=== PATIENT | female | born 1955 | race Caucasian/White ===

== ENCOUNTER 2020-01-25 21:38 | Inpatient (IN) | payer MEDICARE, MEDICAID ==
--- NOTE | 2020-01-25 22:23 | ED ---
Complex/Multi-Sys Presentation - HPI Summary HPI Summary: Patient is a 64 year-old female arriving via ambulance as transfer from [place] to [facility] with a chief complaint of abnormal lab results today with plan for CHF workup/cardiology consult. Patient reports that she had gone to [facility] about a week ago for edema, and she was discharge with instruction to increase her Lasix. She has been compliant with this although she still has some edema in the lower extremities. Today, she developed wheezing without shortness of breath. She endorses some diarrhea today, but she denies any fevers , chills, chest pain, nausea, vomiting, or dysuria. She is not in any pain at this time. Past medical history includes diabetes with retinopathy and neuropathy, seizures, tonsillectomy, 2x C-sections. Family history includes cardiac disease. Current smoker (5 cigarettes a day), no EtOH, no substance use. Medications reviewed. Allergies noted. Labs from [place]: sodium 118, chloride 87, troponin 0.03, BNP 1710, hemoglobin 8.4. - History Of Current Complaint Chief Complaint: EDGeneral Time Seen by Provider: 01/25/20 21:55 Hx Obtained From: Patient Onset/Duration: Lasting Days, Still Present Severity Currently: Mild Aggravating Factor(s): nothing Alleviating Factor(s): nothing Associated Signs And Symptoms: Positive: Wheezing, Edema, Diarrhea. Negative: SOB, Chest Pain, Nausea, Vomiting, Dysuria, Fever, Other - chills - Allergies/Home Medications Allergies/Adverse Reactions: Allergies Allergy/AdvReac Type Severity Reaction Status Date / Time Penicillins Allergy Unknown Verified 01/25/20 22:53 Reaction Details Home Medications: Home Medications Aspirin EC TAB* [Ecotrin EC Low Dose 81 MG*] 81 mg PO DAILY 01/25/20 [History Confirmed 01/25/20] Atorvastatin* [Lipitor*] 80 mg PO DAILY 01/25/20 [History Confirmed 01/25/20] Cholecalciferol TAB* [Vitamin D TAB*] 2,000 units PO DAILY 01/25/20 [History Confirmed 01/25/20] Cyclobenzaprine TAB* [Flexeril 10 MG TAB*] 10 mg PO TID PRN 01/25/20 [History Confirmed 01/25/20] FLUoxetine CAP* [PROzac CAP*] 10 mg PO DAILY 01/25/20 [History Confirmed ] Furosemide TAB* [Lasix TAB*] 60 mg PO DAILY 01/25/20 [History Confirmed 01/25/20 ] Gabapentin CAP(*) [Neurontin 400 mg CAP(*)] 400 mg PO BID 01/25/20 [History Confirmed 01/25/20] Insulin Aspart Prot/Insuln Asp [Novolog Mix 70-30 Flexpen 3 ML x 5 PENS] 20 units SUBCUT DAILY 01/25/20 [History Confirmed 01/25/20] LevoCETirizine TAB (NF) [Xyzal TAB (NF)] 5 mg PO DAILY 01/25/20 [History Confirmed 01/25/20] Losartan TAB* [Cozaar TAB*] 100 mg PO DAILY 01/25/20 [History Confirmed 01/25/20 ] Magnesium Oxide [Magnesium] 250 mg PO BID 01/25/20 [History Confirmed 01/25/20] Meloxicam(NF) [Mobic(NF)] 7.5 mg PO DAILY 01/25/20 [History Confirmed 01/25/20] [place]-3 Fatty Acids (Nf) [Fish Oil (NF)] 1,000 mg PO BID 01/25/20 [History Confirmed 01/25/20] Omeprazole CAP (NF) [Prilosec CAP* 20 MG] 20 mg PO DAILY 01/25/20 [History Confirmed 01/25/20] Phenytoin CAP(*) [Dilantin CAP(*)] 200 mg PO BID 01/25/20 [History Confirmed ] PMH/Surg Hx/FS Hx/Imm Hx Endocrine/Hematology History: Reports: Hx Diabetes Opthamlomology History: Reports: Other Sensory Impairments - diabetic retinopathy Neurological History: Reports: Hx Nerve Disease - diabetic neuropathy, Hx Seizures - Surgical History Surgical History: Yes Surgery Procedure, Year, and Place: tonsillectomy, 2 c-sections Infectious Disease History: No Infectious Disease History: Denies: Traveled Outside the [place] in Last 30 Days - Family History Known Family History: Positive: Cardiac Disease - Social History Alcohol Use: None Hx Substance Use: No Substance Use Type: Reports: None Hx Tobacco Use: Yes Smoking Status (MU): Light Every Day Tobacco Smoker - Additional Comments History Additional Comments: diabetes with retinopathy and neuropathy, seizures, current smoker Review of Systems - ROS Summary Review of Systems Summary: Home Medications Medication Instructions Recorded Confirmed Type Aspirin EC TAB* [Ecotrin EC Low 81 mg PO DAILY 01/25/20 01/25/20 History Dose 81 MG*] Atorvastatin* [Lipitor*] 10 mg PO DAILY 01/25/20 01/25/20 History Cholecalciferol TAB* [Vitamin D 2,000 units PO DAILY 01/25/20 01/25/20 History TAB*] Cyclobenzaprine TAB* [Flexeril 10 10 mg PO TID PRN 01/25/20 01/25/20 History MG TAB*] FLUoxetine CAP* [PROzac CAP*] 10 mg PO DAILY 01/25/20 01/25/20 History Furosemide TAB* [Lasix TAB*] 60 mg PO DAILY 01/25/20 01/25/20 History Gabapentin CAP(*) [Neurontin 400 400 mg PO BID 01/25/20 01/25/20 History mg CAP(*)] Insulin Aspart Prot/Insuln Asp 20 units SUBCUT DAILY 01/25/20 01/25/20 History [Novolog Mix 70-30 Flexpen 3 ML x 5 PENS] LevoCETirizine TAB (NF) [Xyzal TAB 5 mg PO DAILY 01/25/20 01/25/20 History (NF)] Losartan TAB* [Cozaar TAB*] 50 mg PO DAILY 01/25/20 01/25/20 History Magnesium Oxide [Magnesium] 250 mg PO BID 01/25/20 01/25/20 History Meloxicam(NF) [Mobic(NF)] 7.5 mg PO DAILY 01/25/20 01/25/20 History O[place]-3 Fatty Acids (Nf) [Fish Oil 1,000 mg PO BID 01/25/20 01/25/20 History (NF)] Omeprazole CAP (NF) [Prilosec CAP* 20 mg PO DAILY 01/25/20 01/25/20 History 20 MG] Phenytoin CAP(*) [Dilantin CAP(*)] 200 mg PO BID 01/25/20 01/25/20 History Negative: Fever, Chills Negative: Chest Pain Positive: Other - wheezing. Negative: Shortness Of Breath, Cough Positive: Diarrhea. Negative: Abdominal Pain, Vomiting, Nausea Negative: dysuria Positive: Edema All Other Systems Reviewed And Are Negative: Yes Physical Exam - Summary Physical Exam Summary: General: Well-developed, Obese female. No acute distress. HEENT: Normocephalic, Atraumatic. Appears blind. Oropharynx: Clear, mucous membranes moist, (-) exudates. Neck: Soft, FROM, (-) lymphadenopathy, (-) thyromegaly, (-) JVD. Cardiovascular: Heart rate is irregular, (-) murmur. Lungs: Bibasilar crackles, (-) wheezes, (-) rales, (-) rhonchi. Abdomen: Soft, non-tender, non-distended, (-) organomegaly, normal bowel sounds. Back: (-) CVA tenderness Extremities: 2+ pitting edema with some weeping. Skin: Warm, dry, (-) rash. Neuro: Alert and oriented x3, moves all extremities equally. No ataxia. No gait disturbance. No sensory deficit. Normal strength, normal sensation. Psychiatric: Mood normal, affect normal. Triage Information Reviewed: Yes Vital Signs On Initial Exam: Initial Vitals Temp Pulse Resp BP Pulse Ox 98.6 F 82 20 167/64 98 01/25/20 21:58 01/25/20 21:58 01/25/20 21:58 01/25/20 21:58 01/25/20 21:58 Vital Signs Reviewed: Yes Procedures - Sedation Patient Received Moderate/Deep Sedation with Procedure: No Diagnostics - Vital Signs Vital Signs Temp Pulse Resp BP Pulse Ox 01/25/20 21:58 98.6 F 82 20 167/64 98 - Laboratory Result Diagrams: 01/26/20 00:04 Lab Statement: Any lab studies that have been ordered have been reviewed, and results considered in the medical decision making process. Re-Evaluation - Re-Evaluation First Eval Re-Evaluation Time: 23:10 Comment: Patient agreeable with admission plan. Complex Multi-Symp Course/Dx Course Of Treatment: 64-year-old female transferred from [facility] emergency Department for evaluation. Patient states she went to the hospital today because she was wheezing when she exhaled. That is new for her. She states she went to [facility] about a week ago with swelling and weeping in her lower legs. She doesn't think that was very helpful. She did follow up with her doctor and her Lasix has been increased twice. To 40 mg daily and then 60 mg daily. She denies any chest pain. Some shortness of breath. Continues with swelling. On physical exam she is obese and edematous. Bibasilar crackles. Afebrile. Normal pulse ox on room air. Laboratories done at previous hospital demonstrates elevated BNP, troponin. Low sodium at 118. Low calcium. Anemic. Chest x-ray and CT scan are reviewed. Patient is given Lasix IV. Referred to hospitalist for admission. - Diagnoses Provider Diagnoses: Tobacco use, CHF (congestive heart failure) - Physician Notifications Discussed Care Of Patient With: Marcos Pa - hospitalist Time Discussed With Above Provider: 23:05 Instructed by Provider To: Other - I discussed the patients case with Dr. Pa, who accepts the patient for admission. Discharge ED - Sign-Out/Discharge Documenting (check all that apply): Patient Departure - Patient accepted for admission by Dr. Pa. - Discharge Plan Condition: Stable Disposition: ADMITTED TO [facility] Referrals: Olga VILLASEÑOR,Jacobo Ansari [Primary Care Provider] - - Billing Disposition and Condition Condition: STABLE Disposition: Admitted to [facility] - Attestation Statements Document Initiated by Cheryibe: Yes Documenting Scribe: Caitlyn Allen Provider For Whom Beth is Documenting (Include Credential): Lissy Taylor MD Scribe Attestation: ICaitlyn, scribed for Lissy Taylor MD on 01/26/20 at 0032. Scribe Documentation Reviewed: Yes Provider Attestation: The documentation as recorded by the Caitlyn spencer accurately reflects the service I personally performed and the decisions made by me, Lissy Taylor MD Status of Scribe Document: Viewed
[2020-01-25] MEDS ORDERED: Furosemide IV* 10 MG/ML VIAL (40 MG) IV SLOW PU ONE (23:02)
[2020-01-26] MEDS ORDERED: Albuterol 2.5 MG/3 ML NEB.SOL* (0.083%) INH PRN (00:04)
[2020-01-26 00:26] LABS: BUN/Creatinine Ratio 17.7 (8-20); Calcium 8.4 mg/dL (8.6-10.3); EGFR African American 50.1 (>60); EGFR Non-African American 41.4 (>60)
[2020-01-26 00:28] LABS: Troponin I 0.02 ng/mL (<0.03)
[2020-01-26 00:31] LABS: Potassium 5.3 mmol/L (3.5-5.0)
[2020-01-26] MEDS ORDERED: Dextrose 50% Syringe 50 ML* 25 GM/50 ML SYRINGE IV PUSH PRN (01:39)
[2020-01-26] MEDS: Enoxaparin(*) 40 MG/0.4 ML SYR SUBCUT SCH (01:53)
[2020-01-26] MEDS ORDERED: Magnesium Sulfate 1 GM IV* 1 GM/100 ML BAG IV ONE (02:08)
--- NOTE | 2020-01-26 03:40 | HP ---
CC: Dr. Espinoza * HISTORY AND PHYSICAL: DATE OF ADMISSION: 01/25/20 PROVIDER: Stacey Dorsey NP PRIMARY CARE PHYSICIAN: Dr. Espinoza. ATTENDING PHYSICIAN WHILE IN THE HOSPITAL: Dr. Pa * (dictated by Stacey Dorsey NP). CHIEF COMPLAINT: 1. Leg swelling. 2. Weakness. HISTORY OF PRESENT ILLNESS: Ms. Blevins is a 64-year-old female with past medical history significant for new diagnosis of CHF, history of coronary artery disease, history of seizure disorder, type 2 diabetes, hypertension, diabetic retinopathy, legally blind, who presented to the emergency room as a transfer from [facility] for further cardiac evaluation. The patient reports that on 01/16/20, she was lowered to the ground and fell on her butt. She reports that after that she started to have leg swelling that got worse and then her legs started weeping. She was seen at [place] and 01/21/20. At that time , she was told to take 40 of Lasix instead of 20 Lasix daily and was instructed to follow up with her primary care provider. She followed up with her PCP on . At that time, she was instructed to increase Lasix to 60 mg daily. She reports she continued to feel weak and continued to have lower extremity and abdominal swelling. The patient does report also shortness of breath with exertion x2 days. She denies any fever, cough or rhinorrhea. She denies any chest pain or hemoptysis. No nausea or vomiting. No abdominal pain. She denies any gross hematuria or dysuria. She does report weakness. She reports she is legally blind. No dysphagia, arthralgias. She does have some scabbed areas noted to her lower extremities. No weeping at this time. Denies any psychosis, anxiety. She does report a weight gain of 25 to 30 pounds since . She reported she normally weighs 160. She currently reports a weight of 190. While at the [facility], the patient had routine lab work drawn. She was found to have a sodium level of 118 and a mildly elevated troponin of 0.03. Due to these findings, she was transferred to [facility]. Due to the findings of congestive heart failure, Hospital Medicine was asked to see and evaluate her for admission. PAST MEDICAL HISTORY: Significant for: 1. Diastolic CHF. 2. History of coronary artery disease. 3. Questionable [place] in the past. 4. History of seizures. 5. Type 2 diabetes. 6. Hypertension. 7. Diabetic retinopathy. 8. Legally blind. PAST SURGICAL HISTORY: 1. Tubes in her ears. 2. Tonsillectomy. 3. Left eye surgery. 4. x2. MEDICATIONS: Home medications include: 1. Atorvastatin 80 mg p.o. daily. 2. Losartan 100 mg p.o. daily. 3. Vitamin D 2000 units p.o. daily. 4. Dilantin 200 mg b.i.d. 5. Gabapentin 400 mg b.i.d. 6. Furosemide 60 mg p.o. daily. 7. Flexeril 10 mg p.o. t.i.d. p.r.n. 8. Magnesium oxide 250 mg p.o. b.i.d. 9. Omeprazole 20 mg p.o. daily. 10. [place]-3 fatty acids 1000 mg p.o. b.i.d. 11. Mobic 7.5 mg p.o. daily. 12. Insulin 70/30 at 22 to 24 units with breakfast, 8 to 12 units with dinner. 13. Fluoxetine 10 mg p.o. daily. 14. Aspirin 81 mg p.o. daily. 15. Xyzal 5 mg p.o. daily. 16. Albuterol HFA inhaler 2 puffs 4 times a day p.r.n. shortness of breath. ALLERGIES: PENICILLIN. FAMILY HISTORY: Mother with an [place] in her 50s. Father with an [place] in the 60s. No diabetes or cancer. SOCIAL HISTORY: The patient smokes 5 cigarettes per day. No alcohol or illicit drug use. She reports she is . She lives with her daughter. Surrogate decision maker in the event she is unable to make her own decisions will be her daughter. She is a full code. REVIEW OF SYSTEMS: A 14-point review of systems is completed. All pertinent positives mentioned in the HPI. PHYSICAL EXAMINATION GENERAL: At this time, Ms. Blevins is a 64-year-old female. She is alert and oriented. Resting on the stretcher in the emergency room. She is in no acute distress. VITAL SIGNS: Blood pressure 153/99, heart rate 82, respirations 16, O2 saturation 97%, temperature was 98.6. HEENT: Head is atraumatic, normocephalic. Eyes, EOMs are intact. Sclerae anicteric and not pale. Oral mucosa is moist. NECK: Supple with mild JVD. CARDIAC: S1, S2. Regular rate and rhythm. No murmurs, rubs or gallops. ABDOMEN: Obese, soft. Bowel sounds are present x4. She does have 2 to 3+ pitting edema to her abdomen. EXTREMITIES: She is able to to move all 4 extremities. There is no clubbing or cyanosis. She does have 3 to 4+ pitting edema to her lower extremities with scabbed areas noted to bilateral lower legs. No weeping at this time. No surrounding erythema. Pedal pulses are +1. NEUROLOGIC: She is awake, alert and oriented x3. Her speech is clear. Thought process is intact. SKIN: She does have scabbed areas noted to bilateral lower extremities without surrounding erythema. DIAGNOSTIC STUDIES/LAB DATA: WBCs are 7.62, RBCs 2.73, hemoglobin 8.4, hematocrit was 24.1, platelet count was 429. Repeat BMP here, sodium 117, potassium 5.3, chloride 89, carbon dioxide was 23, anion gap was 5, BUN was 23, creatinine 1.30, glucose is 63, serum osmolality was 254, calcium was 8.4 and troponin was 0.02. Urine at [facility] was within normal limits with the exception of trace blood. INR was 1.11. BNP was 1710. ASTs were 34, ALTs were 29, and T-bili was 0.20. Chest x-ray at [facility] showed small bilateral pleural effusions. Pleural space were clear. CT chest, abdomen and pelvis: There is small right and very small left pleural effusions associated with dependent atelectasis. There is peripheral ground glass interstitial opacities in the right upper lobe and left upper lobe. I cannot exclude interstitial pulmonary edema or pneumonitis. There is mild mediastinal lymphadenopathy. There is significant subcutaneous edema likely related to anasarca. Abdomen shows subcutaneous edema likely related to anasarca. No acute pathology. This is completed at [facility]. ASSESSMENT AND PLAN: Ms. Blevins is a 64-year-old female with a past medical history significant for coronary artery disease, history of congestive heart failure, seizure, type 2 diabetes, diabetic retinopathy, hypertension, legally blind, who presented to [facility] as a transfer from [facility] due to congestive heart failure exacerbation. She will be admitted inpatient for: 1. Shortness of breath/weakness. I suspect this is related to her underlying acute diastolic congestive heart failure exacerbation. She does have 3-4+ pitting edema noted to bilateral lower extremities and +3 pitting edema to her abdomen. She does report shortness of breath with exertion. She was given 80 of Lasix in the emergency room. I will give her 1 more dose of 80 Lasix in the a.m. and further dosing based on patient's response to the Lasix. She will have a transthoracic echocardiogram. I did repeat her troponin with 0.02. I will also place the patient on fluid restrictions of 1500 cc per day. She will be monitored on telemetry and placed on strict I and Os and daily weights. Could consider cardiology consult after echo. 2. Hyponatremia. The patient is hyponatremic with a repeat sodium level of 117. We will continue to monitor her sodium. I suspect this is related to volume overload. She is receiving Lasix 80 mg IV. I will repeat a BMP in the a.m. I will also send a urine for urine sodium and urine osmolality to rule out syndrome of inappropriate antidiuretic hormone secretion, which is currently pending. The patient will also be placed on a 1500 cc. fluid restriction. 3. Hyperkalemia. The patient does have a potassium of 5.3. She did receive Lasix 80 IV. I will repeat a BMP in the a.m. I am going to hold off on giving her Kayexalate at this time, as she did just receive 80 mg of Lasix IV. 4. Type 2 diabetes. The patient does have type 2 diabetes for which she takes insulin 70/30. I am going to hold her 70/30. I will place her on lispro sliding scale with fingersticks a.c. and h.s. 5. Hypertension. She can continue on Losartan 100 mg p.o. daily. 6. Gastroesophageal reflux disease. She will continue omeprazole 20 mg p.o. daily. 7. Legally blind. The patient is legally blind. She will need assistance with meals setup and call parra orientation. 8. FEN: She can have a consistent carb diet with fluid restriction of 1500 cc per day. 9. DVT prophylaxis: I will place her on Lovenox subcu. 10. Code status: She is a full code. TIME SPENT: Time spent on this admission was 60 minutes. Greater than half that time was spent at the bedside reviewing the events leading thus far to her hospitalization, performing physical exam and reviewing my plan of care. I have discussed with my attending Dr. Pa, he is in agreement with my plan. STACEY DORSEY, KIRSTEN [id number]/CPS #: [id number] AMY
[2020-01-26 06:29] LABS: ABS Basophils 0.1 10^3/ul (0-0.2); ABS Eosinophils 0.1 10^3/ul (0-0.6); ABS Lymphocytes 1.1 10^3/ul (1.0-4.8); ABS Monocytes 0.7 10^3/ul (0-0.8); ABS Neutrophils 6.8 10^3/ul (1.5-7.7); Eosinophil % 1.1 %; Hematocrit 26 % (35-47); Hemoglobin 8.7 g/dL (12.0-16.0); Lymphocyte % 12.8 %; Mean Corpuscular HGB Conc 34 g/dL (31-36); Mean Corpuscular Hemoglobin 31 pg (27-31); Mean Corpuscular Volume 92 fL (80-97); Mean Platelet Volume 6.5 fL (7.4-10.4); Nucleated Red Blood Cells % 0.1; Platelet Count 411 10^3/uL (150-450); Red Blood Count 2.77 10^6 /uL (3.70-4.87); Red Cell Distribution Width 14 % (10-15); White Blood Count 8.9 10^3/uL (3.5-10.8)
[2020-01-26 06:44] LABS: BUN/Creatinine Ratio 18.4 (8-20); EGFR African American 52.4 (>60); EGFR Non-African American 43.3 (>60); Potassium 4.9 mmol/L (3.5-5.0)
[2020-01-26] MEDS ORDERED: Sodium Chloride 3% HYPERTONIC* 500 ML IV ONE (07:25)
[2020-01-26 07:28] LABS: Phenytoin 8.3 mcg/mL (10-20)
[2020-01-26] MEDS ORDERED: Furosemide IV* 10 MG/ML VIAL (40 MG) IV ONE (08:00)
[2020-01-26] MEDS ORDERED: Furosemide IV* 10 MG/ML 10 ML VIAL (100 MG) IV ONE (08:09)
[2020-01-26] MEDS ORDERED: Furosemide IV* 10 MG/ML VIAL (40 MG) IV SCH (09:00)
[2020-01-26] MEDS: Insulin LISPRO* 1 UNITS UNIT SUBCUT SCH ×4 (09:08→20:32)
[2020-01-26] MEDS: Cholecalciferol TAB* 1000 UNITS PO SCH (09:09)
[2020-01-26] MEDS: Phenytoin CAP(*) 100 MG CAP.ER PO SCH ×2 (09:10→20:12)
[2020-01-26] MEDS: Losartan TAB* 25 MG PO SCH (09:10)
[2020-01-26] MEDS: Pantoprazole TAB * 40 MG TAB PO SCH (09:10)
[2020-01-26] MEDS: Aspirin EC TAB* 81 MG TAB.EC PO SCH (09:11)
[2020-01-26] MEDS: Gabapentin CAP(*) 400 MG PO SCH ×2 (09:11→20:12)
[2020-01-26] MEDS: FLUoxetine CAP* 10 MG PO SCH (09:13)
[2020-01-26 12:38] LABS: Calcium 8.1 mg/dL (8.6-10.3); EGFR Non-African American 42.1 (>60)
[2020-01-26] MEDS ORDERED: Furosemide IV* 100 MG in NS 0.9% 100 ML* 90 ML IV SCH ×2 (13:00→16:30)
--- NOTE | 2020-01-26 13:26 | CONS ---
CC: Dr. Espinoza * CRITICAL CARE MEDICINE CONSULTATION REPORT: DATE OF ORIGINAL ADMISSION: 01/26/20 DATE OF ICU CONSULTATION: 01/26/20 PRIMARY CARE PHYSICIAN: Dr. Epsinoza ATTENDING PHYSICIAN: Dr. Jacobo Meade (dictated provided by Dhara Mojica NP) REASON FOR ICU CONSULTATION: Hyponatremia, dyspnea on exertion and anasarca. HISTORY OF PRESENT ILLNESS: Ms. Blevins is a 64-year-old female with a past medical history of diabetes, which is insulin dependent, new onset lower extremity edema since December 2019, and hypertension, who presents to the hospital today on 01/26/20 with concern for lower extremity edema, dyspnea on exertion, and hyponatremia in transfer from [facility]. Ms. Blevins states that she has has had long-term history of diabetes, she has diabetic retinopathy and is legally blind. She is on insulin, states that her blood glucose has been well managed. In December, she had a fall and thereafter began developing lower extremity edema. She states that the lower extremity edema has been worsening. She has been following with her primary care physician, Dr. Espinoza and over the course of this month, she has been placed on Lasix and the dose has been increased to 60 mg daily. Despite this she has noted increasing lower extremity edema and shortness of breath. She has had no chest pain, no upper respiratory symptoms, no diarrhea, no nausea, vomiting, or abdominal pain. She states that the Lasix seemed to have been working and that did increase the urine output, but that she had persistent edema despite this. Approximately 10 years ago she had a stress test and was told that she likely had a previous SC. She has had no further work up since then. She has had no echo recently. Ms. Blevins was found to be hyponatremic with sodium on arrival to our hospital of 117 with a potassium of 5.3. Her creatinine was elevated at 1.30, which is slightly up from her baseline. Her serum osmolality was 254, her urine osmolality was 207, urine sodium concentration 58. The patient was initially admitted to the floor after being given Lasix in the ED 80 mg and again Lasix 80 mg on the floor. She had a repeat sodium level this morning, which was 115 and therefore she was brought to the intensive care unit for further evaluation and management. The patient states now that she is asymptomatic. She is neither short of breath at rest nor lightheaded or dizzy or has any neurological changes. Please note the patient states that her baseline weight is 160, is now 190. PAST MEDICAL HISTORY: 1. Recent increasing lower extremity edema of unknown cause. 2. Type 2 diabetes, insulin dependent. 3. Diabetic retinopathy and is legally blind. 4. History of coronary artery disease with questionable SC in the past with report per the patient that "the bottom of my heart was not working." 5. History of seizure. 6. Hypertension. PAST SURGICAL HISTORY: 1. Tubes in her ears. 2. Tonsillectomy. 3. Left eye surgery. 4. x2. MEDICATIONS: Outpatient are: 1. Atorvastatin 80 mg daily. 2. Losartan 100 mg p.o. daily. 3. Cholecalciferol 2000 units p.o. daily. 4. Phenytoin 200 mg p.o. b.i.d. 5. Gabapentin 400 mg p.o. b.i.d. 6. Furosemide 60 mg p.o. daily. 7. Cyclobenzaprine 10 mg p.o. t.i.d. p.r.n. 8. Magnesium oxide 250 mg p.o. b.i.d. 9. Omeprazole 20 mg p.o. daily. 10. [place]-3 fatty acid 1000 mg p.o. b.i.d. 11. Meloxicam 7.5 mg p.o. daily. 12. Insulin NovoLog 70/30 at 20 units subcutaneously daily. 13. Fluoxetine 10 mg p.o. daily. 14. Aspirin 81 mg p.o. daily. 15. Levocetirizine 5 mg p.o. daily. ALLERGIES: PENICILLIN. FAMILY HISTORY: The patient's mother had SC in her 50s. Father had SC in his 60s. No history of diabetes or cancer in the family. SOCIAL HISTORY: The patient smokes 5 cigarettes a day. There is no report of alcohol or illicit drug use. She is , she lives with her daughter. Her surrogate decision maker would be her daughter. She is full code. REVIEW OF SYSTEMS: A 14-point review of systems was completed with Ms. Blevins and all those not mentioned above were negative. PHYSICAL EXAMINATION: General: Ms. Blevins is sitting in bed. She is in no acute distress. Vital Signs: Temperature 98.5, pulse rate 90, respiratory rate 20, O2 saturation 95% on room air, blood pressure 155/71. Neuro: She is alert. She is oriented x3. She moves all extremities equally. There is no facial asymmetry. No focal weakness. Extraocular movements are intact. Heart : S1, S2. No murmur, rub, or gallop and regular. Lungs: Clear to auscultation bilaterally. NO accessory muscle use and good aeration. Abdomen: Soft. There is edema along the periphery of the abdomen indicative of anasarca. Bowel sounds are positive. Extremities: Positive for 2+ pitting edema up through the thigh and into the back. Skin: Intact. DIAGNOSTIC STUDIES/LAB DATA: Sodium on arrival was 117, rechecked at 6:30, it was 115, rechecked at 7:50 a.m., it was 117. Potassium 5.3 on arrival, now 4.9 , chloride 89, serum carbonate 23, BUN 23, creatinine 1.30, follow up check is 1.25, glucose 63, follow up check 151, serum osm 254, calcium 8.4, magnesium 2.0. Troponin 0.02. BNP greater than 1300. TSH 1.16 and cortisol 24.72. Urine shows urine osmolality 207, urine sodium concentration 58. The UA is pending. Phenytoin level was 8.3. Chest x-ray at [facility] shows small left pleural effusion only. She had a CT of the chest, showed small right and very small left pleural effusion associated dependent atelectasis. There are peripheral ground glass interstitial opacities in the right upper lobe and left upper lobe. I cannot exclude interstitial pulmonary edema or pneumonitis. There is mild mediastinal lymphadenopathy. There is significant subcutaneous edema likely related to anasarca. EKG shows a sinus rhythm with no evidence of ischemia. IMPRESSION: Ms. Blevins is an 64-year-old female who presents to the hospital today on 01/26/20 and transferred from [facility] with concern for congestive heart failure likely acute on chronic though no official diagnosis yet outpatient with hyponatremia. The diagnoses of consideration are: 1. Hyponatremia. 2. Acute on chronic heart failure, unknown type. 3. Diabetes. 4. Hypertension. 5. Anemia. Plan is as follows: 1. Neuro: The patient is alert and oriented x3. No neurological deficits noted. 2. Cardiovascular: The patient's BNP is greater than 1300 and history is indicative of congestive heart failure though she has been placed on increasing doses of Lasix outpatient as not had an echocardiogram. Our plans would be for an echocardiogram tomorrow. Her EKG shows no evidence of acute coronary syndrome. She is hemodynamically stable and not short of breath at this time. We will continue with 80 mg of Lasix now and readjust treatment based on clinical course. 3. Pulmonary: The patient is at risk for decompensation, but currently is asymptomatic on room air. We will continue to monitor closely for signs of symptoms related to CHF. 4. ID: The patient has no evidence of infection. 5. GI: The patient will continue on pantoprazole. 6. Renal: The patient has profound anasarca and CHF and new hyponatremia. She is asymptomatic, we will continue with diuresis and will be checking her sodium again at noon and adjust clinical course based on that. She is currently on a fluid restriction of less than 1 L. It is clear that she has a hypervolemic, hyponatremia based on her serum osmolality and urine osmolality and overall clinical picture. 7. Type 2 diabetes: Plan to continue blood glucoses q.a.c with Lispro sliding scale in addition to her home Lispro sliding scale. For now, we are holding the 70/30 because she was mildly hypoglycemic on arrival. 8. Heme: She is anemic, but I think this is reflective of dilution and chronic disease, but we will monitor as we diurese. 9. Endocrine: Again, she will have a consistent carbohydrate diet and blood glucoses q.a.c. Again, we are holding the Novolin. 10. Musculoskeletal: The patient may ambulate with assistance. 11. Wounds: None. 12. Nutrition: Consistent carbohydrate. 13. DVT prophylaxis with Lovenox. 14. Code status is full code. TIME SPENT: Approximately 60 minutes was spent on the consultation of this patient, more than half that time was spent with the patient at the bedside reviewing the events leading up to this hospitalization, performing the physical examination, and reviewing my plan of care. DHARA MOJICA NP [id number]/[facility] #: [id number] AMY
[2020-01-26 14:30] LABS: Urine Appearance Clear; Urine Bilirubin Negative (Negative); Urine Blood 1+ (Negative); Urine Color Straw; Urine Glucose Negative (Negative); Urine Ketones Negative (Negative); Urine Nitrite Negative (Negative); Urine Protein Negative (Negative); Urine Specific Gravity 1.005 (1.010-1.030); Urine Urobilinogen Negative (Negative)
[2020-01-26 14:32] LABS: Urine Bacteria Absent (Absent); Urine Red Blood Cell Trace(0-2/hpf) (Absent); Urine Squamous Epithelial Cell Present (Absent); Urine White Blood Cell Absent (Absent)
[2020-01-26] MEDS ORDERED: Metolazone TAB* 5 MG PO ONE (16:00)
[2020-01-26 18:36] LABS: BUN/Creatinine Ratio 19.1 (8-20); EGFR African American 49.6 (>60); Potassium 4.8 mmol/L (3.5-5.0)
[2020-01-26 18:50] LABS: % Iron Saturation 20 % (15-55); Iron 64 ug/dL (50-212); Total Iron Binding Capacity 321 mcg/dL (250-450); Transferrin 229 mg/dL (203-362)
[2020-01-26 19:13] LABS: Ferritin 20.8 ng/mL (11-307)
[2020-01-26 19:16] LABS: Folate 10.49 ng/mL (>3.99)
[2020-01-26] MEDS: Atorvastatin* 80 MG TAB PO SCH (20:12)
[2020-01-27] MEDS: Acetaminophen TAB* 325 MG PO PRN ×2 (00:29→23:21)
[2020-01-27 04:54] LABS: ABS Basophils 0.2 10^3/ul (0-0.2); ABS Eosinophils 0.2 10^3/ul (0-0.6); ABS Lymphocytes 1.1 10^3/ul (1.0-4.8); ABS Monocytes 0.7 10^3/ul (0-0.8); ABS Neutrophils 4.9 10^3/ul (1.5-7.7); Eosinophil % 2.3 %; Hematocrit 23 % (35-47); Hemoglobin 7.9 g/dL (12.0-16.0); Lymphocyte % 15.9 %; Mean Corpuscular HGB Conc 35 g/dL (31-36); Mean Corpuscular Hemoglobin 31 pg (27-31); Mean Corpuscular Volume 91 fL (80-97); Mean Platelet Volume 6.7 fL (7.4-10.4); Platelet Count 372 10^3/uL (150-450); Red Cell Distribution Width 13 % (10-15); White Blood Count 7.1 10^3/uL (3.5-10.8)
[2020-01-27 05:01] LABS: BUN/Creatinine Ratio 19.5 (8-20); Blood Urea Nitrogen 26 mg/dL (6-24); CO2 Carbon Dioxide 23 mmol/L (22-32); Chloride 91 mmol/L (101-111); EGFR African American 48.8 (>60); EGFR Non-African American 40.3 (>60); Glucose 140 mg/dL (70-100)
[2020-01-27] MEDS: Enoxaparin(*) 40 MG/0.4 ML SYR SUBCUT SCH (05:06)
[2020-01-27 05:15] LABS: Anion Gap 5 mmol/L (2-11); Potassium 4.8 mmol/L (3.5-5.0); Sodium 119 mmol/L (135-145)
[2020-01-27] MEDS ORDERED: Perflutren Lipid Microsphere* 3 ML VIAL ONE (08:29)
[2020-01-27 08:36] LABS: LDH 199 U/L (140-271)
[2020-01-27] MEDS: Insulin LISPRO* 1 UNITS UNIT SUBCUT SCH ×4 (08:59→21:43)
[2020-01-27] MEDS: Phenytoin CAP(*) 100 MG CAP.ER PO SCH ×2 (09:00→21:43)
[2020-01-27] MEDS: Losartan TAB* 25 MG PO SCH (09:00)
[2020-01-27] MEDS ORDERED: Furosemide IV* 10 MG/ML VIAL (40 MG) IV ONE (09:00)
[2020-01-27] MEDS: Gabapentin CAP(*) 400 MG PO SCH ×2 (09:00→21:43)
[2020-01-27] MEDS: Cholecalciferol TAB* 1000 UNITS PO SCH (09:00)
[2020-01-27] MEDS: Pantoprazole TAB * 40 MG TAB PO SCH (09:00)
[2020-01-27] MEDS: Aspirin EC TAB* 81 MG TAB.EC PO SCH (09:00)
[2020-01-27] MEDS: FLUoxetine CAP* 10 MG PO SCH (09:01)
[2020-01-27] MEDS: Metolazone TAB* 5 MG PO SCH (09:01)
--- NOTE | 2020-01-27 10:15 | PN ---
Date of Service: 01/27/20 Critical Care Services: Ms. Blevins reports that she is feeling very well this morning. She denies chest pain, SOB, nausea, vomiting or abdominal pain. Nursing staff report no new concerns. Vital Signs: Temp Pulse Resp BP SpO2 FiO2 98.6 F 92 12 144/62 94 01/27/20 09:00 01/27/20 09:00 01/27/20 09:00 01/27/20 09:00 01/27/20 09:00 Physical Exam: General: Alert, NAD HEENT: Normocephalic, atraumatic, non-icteric sclera, moist oral mucosa Neck: soft, supple, no JVD CV: Regular rate and rhythm, no murmurs or rubs Pulm/Chest: Good bilateral air entry, no rhonchi or rales, no wheeze Abdomen/GI: soft, nontender, nondistended, +BS noted MSK/Skin: warm, dry, intact, +2 pulses+, 2+ pitting edema, no cyanosis Neuro: A&Ox3, no gross focal deficits Psych: Appropriate affect Fluid Balance (Past 24 Hours): I= 1148 O= 2858 Net = -1710 Intake & Output 01/25/20 01/26/20 01/27/20 01/28/20 06:59 06:59 06:59 06:59 Intake Total 123 1025 Output Total 1000 1858 126 Balance -877 -833 -126 Weight 197 lb 11.2 oz 197 lb 6.4 oz Intake: IV Fluids 108 mag 100 IVPB 15 mag 15 Medicated IV 125 GEN - Furosemide/Lasix 125 Oral 0 900 Output: Urine 1000 Salazar 1118 126 Residual 740 Salazar 16 Fr Temperature 740 Probe Other: Estimated Void Medium Estimated Stool Amount Small # Voids 1 Labs: Laboratory Results - last 24 hr 01/26/20 01/26/20 01/26/20 06:23 07:50 12:15 WBC RBC Hgb Hct MCV MCH MCHC RDW Plt Count MPV Neut % (Auto) Lymph % (Auto) [place] % (Auto) Eos % (Auto) Baso % (Auto) Absolute Neuts (auto) Absolute Lymphs (auto) Absolute Monos (auto) Absolute Eos (auto) Absolute Basos (auto) Absolute Nucleated RBC Nucleated RBC % ABG pH ABG pCO2 ABG pO2 ABG HCO3 ABG O2 Saturation ABG Base Excess Sodium 117 L* 117 L* Potassium 5.0 Chloride 89 L Carbon Dioxide 22 Anion Gap 6 BUN 23 Creatinine 1.28 H Est GFR ( Amer) 51.0 Est GFR (Non-Af Amer) 42.1 BUN/Creatinine Ratio 18.0 Glucose 219 H POC Glucose (mg/dL) Calcium 8.1 L Iron TIBC % Saturation Unsat Iron Binding Transferrin Ferritin Lactate Dehydrogenase B-Natriuretic Peptide > 1300 H Vitamin B12 Folate Cortisol 24.72 Urine Color Urine Appearance Urine pH Ur Specific [place] Urine Protein Urine Ketones Urine Blood Urine Nitrate Urine Bilirubin Urine Urobilinogen Ur Leukocyte Esterase Urine WBC (Auto) Urine RBC (Auto) Ur Squamous Epith Cells Urine Bacteria U Sodium Concentration Urine Glucose 01/26/20 01/26/20 01/26/20 12:15 14:15 16:32 WBC RBC Hgb Hct MCV MCH MCHC RDW Plt Count MPV Neut % (Auto) Lymph % (Auto) [place] % (Auto) Eos % (Auto) Baso % (Auto) Absolute Neuts (auto) Absolute Lymphs (auto) Absolute Monos (auto) Absolute Eos (auto) Absolute Basos (auto) Absolute Nucleated RBC Nucleated RBC % ABG pH ABG pCO2 ABG pO2 ABG HCO3 ABG O2 Saturation ABG Base Excess Sodium Potassium Chloride Carbon Dioxide Anion Gap BUN Creatinine Est GFR ( Amer) Est GFR (Non-Af Amer) BUN/Creatinine Ratio Glucose POC Glucose (mg/dL) 236 H 195 H Calcium Iron TIBC % Saturation Unsat Iron Binding Transferrin Ferritin Lactate Dehydrogenase B-Natriuretic Peptide Vitamin B12 Folate Cortisol Urine Color Straw Urine Appearance Clear Urine pH 5.0 Ur Specific [place] 1.005 L Urine Protein Negative Urine Ketones Negative Urine Blood 1+ A Urine Nitrate Negative Urine Bilirubin Negative Urine Urobilinogen Negative Ur Leukocyte Esterase Negative Urine WBC (Auto) Absent Urine RBC (Auto) Trace(0-2/hpf) Ur Squamous Epith Cells Present A Urine Bacteria Absent U Sodium Concentration Urine Glucose Negative 01/26/20 01/26/20 01/26/20 17:22 17:56 17:56 WBC RBC Hgb Hct MCV MCH MCHC RDW Plt Count MPV Neut % (Auto) Lymph % (Auto) [place] % (Auto) Eos % (Auto) Baso % (Auto) Absolute Neuts (auto) Absolute Lymphs (auto) Absolute Monos (auto) Absolute Eos (auto) Absolute Basos (auto) Absolute Nucleated RBC Nucleated RBC % ABG pH ABG pCO2 ABG pO2 ABG HCO3 ABG O2 Saturation ABG Base Excess Sodium 119 L* Potassium 4.8 Chloride 90 L Carbon Dioxide 22 Anion Gap 7 BUN 25 H Creatinine 1.31 H Est GFR ( Amer) 49.6 Est GFR (Non-Af Amer) 41.0 BUN/Creatinine Ratio 19.1 Glucose 139 H POC Glucose (mg/dL) Calcium 8.0 L Iron 64 TIBC 321 % Saturation 20 Unsat Iron Binding < 306 Transferrin 229 Ferritin 20.8 Lactate Dehydrogenase B-Natriuretic Peptide Vitamin B12 452 Folate 10.49 Cortisol Urine Color Urine Appearance Urine pH Ur Specific [place] Urine Protein Urine Ketones Urine Blood Urine Nitrate Urine Bilirubin Urine Urobilinogen Ur Leukocyte Esterase Urine WBC (Auto) Urine RBC (Auto) Ur Squamous Epith Cells Urine Bacteria U Sodium Concentration 74 Urine Glucose 01/26/20 01/27/20 01/27/20 20:18 04:34 04:42 WBC 7.1 RBC 2.50 L Hgb 7.9 L Hct 23 L MCV 91 MCH 31 MCHC 35 RDW 13 Plt Count 372 MPV 6.7 L Neut % (Auto) 69.3 Lymph % (Auto) 15.9 [place] % (Auto) 10.1 Eos % (Auto) 2.3 Baso % (Auto) 2.4 Absolute Neuts (auto) 4.9 Absolute Lymphs (auto) 1.1 Absolute Monos (auto) 0.7 Absolute Eos (auto) 0.2 Absolute Basos (auto) 0.2 Absolute Nucleated RBC 0.0 Nucleated RBC % 0.0 ABG pH ABG pCO2 ABG pO2 ABG HCO3 ABG O2 Saturation ABG Base Excess Sodium 119 L* Potassium 4.8 Chloride 91 L Carbon Dioxide 23 Anion Gap 5 BUN 26 H Creatinine 1.33 H Est GFR ( Amer) 48.8 Est GFR (Non-Af Amer) 40.3 BUN/Creatinine Ratio 19.5 Glucose 140 H POC Glucose (mg/dL) 210 H Calcium 8.0 L Iron TIBC % Saturation Unsat Iron Binding Transferrin Ferritin Lactate Dehydrogenase 199 B-Natriuretic Peptide Vitamin B12 Folate Cortisol 9.23 Urine Color Urine Appearance Urine pH Ur Specific [place] Urine Protein Urine Ketones Urine Blood Urine Nitrate Urine Bilirubin Urine Urobilinogen Ur Leukocyte Esterase Urine WBC (Auto) Urine RBC (Auto) Ur Squamous Epith Cells Urine Bacteria U Sodium Concentration Urine Glucose 01/27/20 01/27/20 05:30 08:42 WBC RBC Hgb Hct MCV MCH MCHC RDW Plt Count MPV Neut % (Auto) Lymph % (Auto) [place] % (Auto) Eos % (Auto) Baso % (Auto) Absolute Neuts (auto) Absolute Lymphs (auto) Absolute Monos (auto) Absolute Eos (auto) Absolute Basos (auto) Absolute Nucleated RBC Nucleated RBC % ABG pH 7.40 ABG pCO2 37 ABG pO2 89 ABG HCO3 23.8 ABG O2 Saturation 99.6 H ABG Base Excess -1.5 Sodium Potassium Chloride Carbon Dioxide Anion Gap BUN Creatinine Est GFR ( Amer) Est GFR (Non-Af Amer) BUN/Creatinine Ratio Glucose POC Glucose (mg/dL) 194 H Calcium Iron TIBC % Saturation Unsat Iron Binding Transferrin Ferritin Lactate Dehydrogenase B-Natriuretic Peptide Vitamin B12 Folate Cortisol Urine Color Urine Appearance Urine pH Ur Specific [place] Urine Protein Urine Ketones Urine Blood Urine Nitrate Urine Bilirubin Urine Urobilinogen Ur Leukocyte Esterase Urine WBC (Auto) Urine RBC (Auto) Ur Squamous Epith Cells Urine Bacteria U Sodium Concentration Urine Glucose Studies: CT chest from [facility] 01/25/20: small pleural effusion, peripheral ground glass interstitial opacities in right upper and left upper lobes, mild mediastinal lymphadenopathy, anasarca Impression: Ms. Blevins is a 64 yo F with a PMH of insulin dependent diabetes with diabetic retinopathy (legally blind) and recent development of profound edema with hx of silent LA in the past who was admitted on 01/26/20 with anasarca with suspected acute on chronic CHF exacerbation, hyponatremia, and anemia. Diagnoses: * Acute on chronic CHF, anasarca * Hyponatremia * Anemia, unknown etiology * Insulin dependent diabetes * Hypertension Plan: Neuro: - A/O x 3, no neuro deficits CVS: - Asymptomatic at rest - Echo completed this AM, mixed diastolic and systolic CHF. However, echo does not seem to explain level of anasarca. Appreciate Dr Garcia consult, echo suggests anterior wall ischemia. Will need cardiac cath when better optimized ( anemic). - Continue diuresis (-[address] Garcia added nitro-paste. - Daily weights (reported dry weight is ~160, now 197) - Trop negative, no ischemic EKG changes Resp: - Asymptomatic at rest, on room air - Peripheral interstitial opacities noted. Not hypoxic, no cough, no leukocytosis or fever. ID: - No evidence of infection GI: -Nutrition: Heart healthy, consistent carb diet -GI prophylaxis: pantoprazole Renal: - Hyponatremia improving - Continue diuresis with metolazone and furosemide Heme: - Anemic with Hgb 7. - Normocytic. Stool occult blood negative. Iron studies, vit B12 and folate normal. - Question anemia of chronic disease with dilution from profound fluid overload , but Hgb fell with diuresis - Recommend hem/onc consult on Tuesday Endo: - Maintain BG<200, insulin protocol as needed Musculsk/Skin - No issues identified Wounds: - none DVT prophylaxis: Lovenox GI prophylaxis: Pantoprazole Salazar Catheter: Continue for mass diuresis Disposition: Patient status improving Patient clinical status: Guarded but improving Code Status: Full code Total Critical Care time is 45 minutes, excluding procedures/teaching
--- NOTE | 2020-01-27 12:40 | ECHO ---
*[facility]* [place] [address] Fax #: [phone] Transthoracic Echocardiogram Patient: Sherita Blevins : 1955 Study Date: 01/27/2020 Age: 64 Gender: F HR: 91 bpm Height: 64 in /162.6 cm BSA: 1.94 m^2 Weight: 195.6 lb /88.9 kg BMI: 33.6 kg/m^2 *Warm In: Constance Mccall *Referring Physician: * Mirta Dorsey *Reading Physician: * Favio Garcia MD Indications: Congestive Heart Failure. History: Coronary artery disease. Risk factors: Current tobacco use. Hypertension. Diabetes mellitus. Conclusions Summary: - Left ventricle: The cavity size is at the upper limits of normal. Wall thickness is mildly increased. Systolic function is moderately reduced. The estimated ejection fraction is 30-35%. Features are consistent with a pseudonormal left ventricular filling pattern, with concomitant abnormal relaxation and increased filling pressure (grade 2 diastolic dysfunction). - Right ventricle: The cavity size is at the upper limits of normal. Systolic function is mildly reduced. - Tricuspid valve: There is trace to mild regurgitation. Study data: Transthoracic echocardiogram. Procedure: Transthoracic echocardiography was performed. Image quality was suboptimal. The study was technically limited due to poor acoustic window availability and Smoking history. Intravenous Definity , 2 mlswas administered. Complete 2D, spectral Doppler, and color flow Doppler. Location: ICU Patient status: Inpatient. Patient room number: 4. No prior study is available for comparison. Rhythm: Normal sinus rhythm. Findings Left ventricle: The cavity size is at the upper limits of normal. Wall thickness is mildly increased. Systolic function is moderately reduced. The estimated ejection fraction is 30-35%. Regional wall motion abnormalities: Hypokinesis of the mid-apical anterior, basal-mid anteroseptal, mid inferoseptal, apical septal, apical lateral, and apical myocardium. Features are consistent with a pseudonormal left ventricular filling pattern, with concomitant abnormal relaxation and increased filling pressure (grade 2 diastolic dysfunction). Right ventricle: The cavity size is at the upper limits of normal. Systolic function is mildly reduced. Ventricular septum: The ventricular septum is normal. Left atrium: The atrium is normal in size. Right atrium: The atrium is normal in size. Atrial septum: No defect or patent foramen ovale is identified. Mitral valve: The valve is structurally normal. There is no evidence of stenosis. There is trace regurgitation. Aortic valve: The valve is trileaflet. Thickening, consistent with sclerosis. Cusp separation is normal. Transvalvular velocity is within the normal range. There is no evidence of stenosis. There is no significant regurgitation. Tricuspid valve: The valve is structurally normal. There is no evidence of stenosis. There is trace to mild regurgitation. Pulmonic valve: The valve is structurally normal. There is no evidence of stenosis. There is mild regurgitation. Aorta: The aortic root appears normal. The aortic arch appears normal. Pericardium: There is no significant pericardial effusion. Pulmonary arteries: Systolic pressure is mildly increased, estimated to be 40 mm Hg. Systemic veins: Inferior vena cava: The vessel is normal in size. There is (>= 50%) respiratory change in the IVC dimension. Pulmonary veins: The Pulmonary veins appear normal. Measurements Left ventricle Value Ref Aortic valve continued Value Ref JESSIE, LAX (H) 5.8 cm 3.8 - 5.2 Mean grad, S 5.0 mm Hg ----- ESD, LAX (H) 4.0 cm 2.2 - 3.5 Peak grad, S 9.0 mm Hg ----- FS, LAX 30 % 27 - 45 KRIS, VTI 2.12 cm^2 ----- PW, ED, LAX (H) 1.2 cm 0.6 - 0.9 KRIS, Vmax 2.22 cm^2 ----- Qs 18.1 L/min E', lat luis, TDI 10.0 cm/sec >=10.0 Mitral valve Value Ref E/e', lat luis, 13 Peak E 1.33 m/sec - ---- TDI Peak A 1.07 m/sec ----- Decel time 161 ms ----- LVOT Value Ref Peak grad, D 7.1 mm Hg ----- Diam, S 2.00 cm Peak E/A ratio 1.2 ----- Area 3.1 cm^2 Peak gwyn, S 1.03 m/sec Pulmonic valve Value Ref Mean grad, S 2 mm Hg Peak v, S 0.92 m/sec ----- SV 64 ml Peak grad, S 3.0 mm Hg ----- Ventricular septum Value Ref Tricuspid valve Value Ref IVS, ED (H) 1.1 cm 0.6 - 0.9 TR peak v (H) 2.87 m/sec <=2 .8 Peak RV-RA grad, S 35 mm Hg ----- Right ventricle Value Ref Max TR gwyn 2.87 m/sec ----- JESSIE, LAX 3.2 cm JESSIE minor ax, (H) 4.1 cm 1.9 - 3.5 Aortic root Value Ref A4C mid Root diam 2.4 cm <4. 1 Left atrium Value Ref Ascending aorta Value Ref AP dim, ES (H) 4.30 cm 2.70 - AAo AP diam, S 2.8 cm ----- 3.80 ML dim, A4C 4.1 cm Aortic arch Value Ref SI dim, A4C 5.8 cm Arch diam 2.8 cm ----- Vol/bsa, ES, 1-p 28 ml/m^2 11 - 40 A4C Decending aorta Value Ref Lay peak gwyn 0.98 m/sec ----- Right atrium Value Ref SI dim, ES 5.3 cm 3.4 - 5.3 Inferior vena cava Value Ref ML dim, ES, A4C 4.4 cm 2.6 - 4.4 Diam 2.1 cm ----- SI dim, ES, A4C 5.3 cm 3.4 - 5.3 Aortic valve Value Ref Peak v, S 1.46 m/sec VTI, S 30.4 cm Legend: (L) and (H) gómez values outside specified reference range. Prepared and electronically signed by Favio Garcia MD 01/27/2020 12:39
[2020-01-27 13:06] LABS: Albumin 2.8 g/dL (3.2-5.2)
[2020-01-27 13:12] LABS: Prealbumin 15 mg/dL (18-38)
[2020-01-27] MEDS: Nitro 2% OINT* (Nitroglycerin) 1 INCH/PAK PAK TOPICAL SCH (14:02)
[2020-01-27 14:15] LABS: C Reactive Protein 63.13 mg/L (<8.01)
[2020-01-27 14:25] LABS: Troponin I 0.04 ng/mL (<0.03)
[2020-01-27 14:58] LABS: Erythrocyte Sed Rate 3 mm/Hr (0-29)
[2020-01-27 15:26] LABS: Albumin 2.8 g/dL (3.2-5.2); BUN/Creatinine Ratio 19.5 (8-20); EGFR African American 41.2 (>60); Globulin 2.7 g/dL (2-4); Potassium 4.7 mmol/L (3.5-5.0); Total Bilirubin 0.3 mg/dL (0.2-1.0); Total Protein 5.5 g/dL (6.4-8.9)
[2020-01-27] MEDS ORDERED: Ondansetron INJ* 2 MG/ML VIAL IV PRN (16:48)
--- NOTE | 2020-01-27 21:41 | CONS ---
CC: Dr. Espinoza; Dr. Garcia; Dhara Mojica NP * CARDIOLOGY CONSULTATION: DATE OF CONSULT: 01/27/20 PATIENT OF: Dr. Espinoza and Dr. Garcia. CONSULTING PROVIDER: Dhara Mojica NP REASON FOR EVALUATION: Edema. HISTORY OF PRESENT ILLNESS: This is a 64-year-old woman with history of hypertension, diabetes, tobacco use, who recently noted progressive dyspnea on exertion and edema. She said that she was in her usual state of health when she saw her primary care doctor on 12/14/19. Subsequent to that, she had a fall on 12/18/19, she misplaced her footing and fell on her left leg. She had some swelling which progressed. She saw her doctor and was told to use compression stockings. She continued to retain fluid and developed dyspnea on exertion. She previously had been able to walk 700 feet without stopping. She started getting short of breath at 700 feet and then had a deterioration of her shortness of breath despite being given Lasix 20 mg a day and doubling to 40 mg a day towards the end of December 2019. She reported weight gain of 25 to 30 pounds since 01/16/20. Because of progressive shortness of breath and weight gain of about 30 pounds, she decided to go to the [facility]. At the [facility], she was found to have sodium of 118, elevated troponin 0.03, and she was transferred. The patient told me that she fell on the ground on but her admission history reports 01/16/20 and that she was seen at [facility] on 01/21/20, was told to increase her Lasix to 40 mg from 20 and then was seen by primary care provider on 01/23/20 and was instructed to go to Lasix 60 mg. She continued to feel weak and short of breath and then presented to the [facility] as stated on the 01/25/20. Since she has been here she has been given IV Lasix and Zaroxolyn with some improvement in her volume status and her sodium. She denies any chest pain. She states she thinks her breathing is better. She is legally blind and does not walk much. She denies any orthopnea. She does smoke 5 cigarettes a day. 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 PAST MEDICAL HISTORY: Includes: 1. Hypertension. 2. Diabetes. 3. Hyperlipidemia. 4. Tobacco use, 5 cigarettes a day. 5. Obesity. 6. Blindness due to diabetic retinopathy. 7. She reports a history of seizures. PAST SURGICAL HISTORY: Includes tonsillectomy and adenoidectomy as a child, tympanostomy tubes, 2 C-sections, left eye surgery in 87 for diabetic retinopathy, currently blind in both eyes. MEDICATIONS AT HOME: Include: 1. Atorvastatin 80. 2. Losartan 100. 3. Dilantin 200 mg b.i.d. 4. Vitamin D 200 units a day. 5. Gabapentin 400 mg b.i.d. 6. Furosemide 60 mg a day. 7. Flexeril 10 mg t.i.d. p.r.n. 8. Magnesium oxide 250 b.i.d. 9. Omeprazole 20 mg a day. 10. Mobic 7.5 mg a day. 11. Fluoxetine 10 mg a day. 12. Aspirin 81 mg a day. 13. Xyzal 5 mg a day. 14. Albuterol 2 puffs 4 times a day p.r.n. ALLERGIES: PENICILLIN. FAMILY HISTORY: Mother had an IA in her 50s. Father had IA in his 60s. She has 1 sister alive, 3 sisters and 1 brother in their 60s of unknown causes. SOCIAL HISTORY: She is and has 2 adult children. Lives with her daughter and son-in-law. She is a retired nurse substance abuse. She denies alcohol use. She drinks 2 caffeinated coffees a day. She denies asthma or emphysema. REVIEW OF SYSTEMS: Review of systems x10 was negative except as above. PHYSICAL EXAM: She is a well-developed, well-nourished obese female, in no apparent distress. JVD of approximately 14 cm. Carotids 2+ without bruits. Opacified left cornea, blind, unable to cooperate with extraocular muscles. Atraumatic, normocephalic. No cervical lymphadenopathy or thyromegaly. Cardiac Exam: S1, S2 with a 1/6 systolic ejection at the base. Chest was clear except for soft rales at the bases. Abdomen: Obese, bowel sounds present. There was pitting edema of the lower abdominal wall as well as presacral area and 3+ edema of the lower extremities. Femoral pulses were intact with bruits bilaterally, distal pulses diminished but present. Motor strength 5/5 bilaterally. Deep tendon reflexes 2 /4. Alert and oriented x3. Blood pressure 133/68, pulse of 87, O2 sat 98 on room air, temperature 98.8. DIAGNOSTIC STUDIES/LAB DATA: Marked anemia with hemoglobin of 7.9, hematocrit of 23, platelet count of 373. Phenytoin level is 8.3. Sodium low at 119, potassium of 4.8, BUN of 26, creatinine of 1.33, calcium of 8.0, magnesium 2.0 yesterday. Iron and iron binding studies were normal with a low normal iron of 64, ferritin low at 20.8. Initial troponin was 0.02 on 01/26/20, repeat today is pending. Prealbumin was low at 15 and albumin was 2.8. Echocardiogram revealed EF of 30% to 35%, pseudonormal left ventricular filling pattern, mildly reduced RV function, trace to mild TR. There appeared to be more pronounced anterior hypokinesis. Chest x-ray from 01/25/20, small left pleural effusion. EKG from today revealed sinus rhythm with low voltage and poor R-wave progression, possible anterior IA, nonspecific ST-T changes and similar to the previous EKG of 01/25/20. IMPRESSION: My impression is that Ms. Blevins has a cardiomyopathy, congestive heart failure of unclear etiology, there is both systolic and diastolic function , and she has low voltage on her EKG raising possibility of infiltrative cardiomyopathy. She also has a severe anemia and hypoalbuminemia raising the possibility of a systemic disorder or malignancy. For the time being, I have recommended the followin. I have discussed the case with the patient, Dr. Padron and Dhara Mojica. 2. I would recommend continued gentle diuresis with metolazone and IV Lasix as needed. 3. We will follow her renal function, try to maintain potassium over 4. 4. We will consider possibility of ischemic heart disease given her risk factors and the focal wall motion abnormality. At some point, I think she would benefit from a cardiac catheterization. She is willing to proceed. The risks and benefits including but not limited to stroke and renal failure were discussed with the patient. 5. I would consider adding a serum protein electrophoresis to her labs to evaluate for amyloid. 6. We would consider Hematology consult given her marked anemia, consider possibility of bone marrow abnormality. 7. Peripheral edema appears to be out of proportion to her heart failure. We consider the possibility that this is related to her hypoalbuminemia and perhaps some other systemic illness, would consider possibility of an intraabdominal process. 8. We will check CRP and sed rate. 9. Would repeat her troponin. 10. Would add nitrates to her regimen in case she does have ischemic heart disease. 11. Would add a low dose of carvedilol for heart failure and possible ischemic heart disease. 12. I strongly advise discontinuation of tobacco use. Further recommendations depend on her clinical course. She would like to discuss her options for further aggressive interventions with her family prior to committing to catheterization. Decision about catheterization will have to be made in light of her underlying anemia due to increased risk of bleeding on dual antiplatelet therapy or anticoagulation with revascularization. [id number]/[facility] #: [id number] AMY
[2020-01-27] MEDS: Atorvastatin* 80 MG TAB PO SCH (21:43)
[2020-01-28] MEDS: Enoxaparin(*) 40 MG/0.4 ML SYR SUBCUT SCH (05:24)
[2020-01-28 06:03] LABS: ABS Eosinophils 0.3 10^3/ul (0-0.6); ABS Lymphocytes 1.2 10^3/ul (1.0-4.8); ABS Monocytes 0.6 10^3/ul (0-0.8); ABS Neutrophils 5.4 10^3/ul (1.5-7.7); Eosinophil % 3.4 %; Hematocrit 24 % (35-47); Hemoglobin 8.2 g/dL (12.0-16.0); Lymphocyte % 15.8 %; Mean Corpuscular HGB Conc 34 g/dL (31-36); Mean Corpuscular Hemoglobin 31 pg (27-31); Mean Corpuscular Volume 92 fL (80-97); Mean Platelet Volume 6.8 fL (7.4-10.4); Nucleated Red Blood Cells % 0.1; Platelet Count 410 10^3/uL (150-450); Red Blood Count 2.65 10^6 /uL (3.70-4.87); Red Cell Distribution Width 14 % (10-15); White Blood Count 7.5 10^3/uL (3.5-10.8)
[2020-01-28 06:25] LABS: BUN/Creatinine Ratio 22.2 (8-20); Calcium 8.3 mg/dL (8.6-10.3); EGFR African American 41.5 (>60); EGFR Non-African American 34.3 (>60)
[2020-01-28 06:55] LABS: Potassium 5.1 mmol/L (3.5-5.0)
[2020-01-28] MEDS: Insulin LISPRO* 1 UNITS UNIT SUBCUT SCH ×4 (08:33→22:05)
[2020-01-28] MEDS: Gabapentin CAP(*) 400 MG PO SCH ×2 (08:34→22:05)
[2020-01-28] MEDS: Phenytoin CAP(*) 100 MG CAP.ER PO SCH ×2 (08:34→22:05)
[2020-01-28] MEDS: Cholecalciferol TAB* 1000 UNITS PO SCH (08:34)
[2020-01-28] MEDS: FLUoxetine CAP* 10 MG PO SCH (08:34)
[2020-01-28] MEDS: Pantoprazole TAB * 40 MG TAB PO SCH (08:35)
[2020-01-28] MEDS: Metolazone TAB* 5 MG PO SCH (08:35)
[2020-01-28] MEDS: Carvedilol TAB* 3.125 MG PO SCH ×2 (08:35→22:05)
[2020-01-28] MEDS: Aspirin EC TAB* 81 MG TAB.EC PO SCH (08:35)
[2020-01-28] MEDS: Nitro 2% OINT* (Nitroglycerin) 1 INCH/PAK PAK TOPICAL SCH ×2 (08:35→14:05)
[2020-01-28] MEDS ORDERED: Losartan TAB* 25 MG PO SCH (09:00)
[2020-01-28] MEDS ORDERED: Furosemide IV* 10 MG/ML VIAL (40 MG) IV SCH (09:00)
[2020-01-28] MEDS: Furosemide IV* 10 MG/ML 10 ML VIAL (100 MG) IV SCH ×2 (09:12→22:05)
--- NOTE | 2020-01-28 11:25 | PN ---
Subjective Date of Service: 01/28/20 Interval History: Patient feels as if her SOB has improved overnight. Patient has been having some weeping from her legs. Patient denies CP, Dizziness, Palpitations, F/C, or other pain. Patient does not feel unsteady on her feet. Patient is very anxious about COVID and wants to go home. Family History: Unchanged from Admission Social History: Unchanged from Admission Past Medical History: Unchanged from Admission Objective Active Medications: Acetaminophen (Tylenol Tab*) 650 mg PO Q6H PRN PRN Reason: MILD PAIN or TEMP > 100.4 Last Admin: 01/27/20 23:21 Dose: 650 mg Albuterol (Ventolin 2.5 Mg/3 Ml Neb.Roxy*) 2.5 mg INH Q6H PRN PRN Reason: SOB/WHEEZING Aspirin (Aspirin Ec Tab*) 81 mg PO DAILY [facility] Last Admin: 01/28/20 08:35 Dose: 81 mg Atorvastatin Calcium (Lipitor*) 80 mg PO 2100 [facility] Last Admin: 01/27/20 21:43 Dose: 80 mg Carvedilol (Coreg Tab*) 3.125 mg PO BID [facility] Last Admin: 01/28/20 08:35 Dose: 3.125 mg Cholecalciferol (Vitamin D Tab*) 2,000 units PO DAILY [facility] Last Admin: 01/28/20 08:34 Dose: 2,000 units Dextrose (D50w Syringe 50 Ml*) 12.5 gm IV PUSH .FOR FS < 60 - SS PRN PRN Reason: FS < 60 Enoxaparin Sodium (Lovenox(*)) 40 mg SUBCUT 0600 [facility] Last Admin: 01/28/20 05:24 Dose: 40 mg Fluoxetine HCl (Prozac Cap*) 10 mg PO DAILY [facility] Last Admin: 01/28/20 08:34 Dose: 10 mg Furosemide (Lasix Iv*) 60 mg IV BID [facility] Last Admin: 01/28/20 09:12 Dose: 60 mg Gabapentin (Neurontin Cap(*)) 400 mg PO BID [facility] Last Admin: 01/28/20 08:34 Dose: 400 mg Insulin Human Lispro (Humalog*) 0 units SUBCUT ACHS [facility]; Protocol Last Admin: 01/28/20 08:33 Dose: 6 unit Losartan Potassium (Cozaar Tab*) 50 mg PO DAILY [facility] Last Admin: 01/28/20 08:35 Dose: 50 mg Metolazone (Zaroxolyn Tab*) 5 mg PO DAILY@0830 [facility] Last Admin: 01/28/20 08:35 Dose: 5 mg Nitroglycerin (Nitroglycerin 2% Oint*) 1 inch TOPICAL 0800,1400 [facility]; Protocol Last Admin: 01/28/20 08:35 Dose: 1 inch Ondansetron HCl (Zofran Inj*) 4 mg IV Q6H PRN PRN Reason: NAUSEA Last Admin: 01/27/20 17:15 Dose: 4 mg Pantoprazole Sodium (Protonix Tab*) 40 mg PO DAILY [facility] Last Admin: 01/28/20 08:35 Dose: 40 mg Phenytoin Sodium (Dilantin Cap(*)) 200 mg PO BID [facility] Last Admin: 01/28/20 08:34 Dose: 200 mg Vital Signs - 8 hr 01/28/20 01/28/20 01/28/20 03:33 07:33 08:00 Temperature 97.9 F 97.6 F Pulse Rate 83 89 Respiratory 16 16 16 Rate Blood Pressure 123/44 142/39 (mmHg) O2 Sat by Pulse 100 98 Oximetry 01/28/20 08:34 Temperature Pulse Rate Respiratory 18 Rate Blood Pressure (mmHg) O2 Sat by Pulse Oximetry Oxygen Devices in Use Now: None Appearance: Patient is a 64yo female who appears stated age and is sitting in the bed in [facility]. Eyes: No Scleral Icterus, PERRLA Ears/Nose/Mouth/Throat: NL Teeth, Lips, Gums, Clear Oropharnyx, Mucous Membranes Moist Neck: NL Appearance and Movements; NL JVP, Trachea Midline Respiratory: Symmetrical Chest Expansion and Respiratory Effort, Clear to Auscultation Cardiovascular: NL Sounds; No Murmurs; No JVD, RRR, - - 2+ Tense B/L LE edema with some mild weeping. Abdominal: NL Sounds; No Tenderness; No Distention, No Hepatosplenomegaly, - - Edema of the abdominal wall. Lymphatic: No Cervical Adenopathy Extremities: No Clubbing, Cyanosis Skin: No Nodules or Sclerosis Neurological: Alert and Oriented x 3, NL Sensation, NL Muscle Strength and Tone , - - Blind, Left Iris opacified Result Diagrams: 01/28/20 05:39 01/28/20 05:39 Microbiology and Other Data: Microbiology 01/26/20 03:28 Stool Occult Blood (JUDITH) - Final Stool Assess/Plan/Problems-Billing Assessment: Patient is a 64yo female with a PMH for DM I with diabetic retinopathy, CKD, here with new HFrEF and hyponatremia, with poor response to diuretics. - Patient Problems (1) HFrEF (heart failure with reduced ejection fraction) Current Visit: Yes Status: Acute Code(s): I50.20 - UNSPECIFIED SYSTOLIC ( CONGESTIVE) HEART FAILURE SNOMED Code(s): 214236011 Comment: - New onset HFrEF, EF 30-35% - Unclear etiology, possibly ischemia, might need cath in future - Appreciate Cardiology input - Continue Lasix IV BID and Metolazone - Continue Carvedilol, Nitro, and Losartan - Decrease Losartan dose due to hyperkalemia - Edema seems to be out of proportion to HF symptoms. - Wrap legs (2) Hyponatremia Current Visit: Yes Status: Acute Code(s): E87.1 - HYPO-OSMOLALITY AND HYPONATREMIA SNOMED Code(s): 16882407 Comment: - Hypotonic, hypervolemic - Treat with Lasix and Metolazone - Monitor for improvement - No overt symptoms, seemed to be symptomatic on admission - Fluid restriction (3) Diabetes Current Visit: Yes Status: Acute Code(s): E11.9 - TYPE 2 DIABETES MELLITUS WITHOUT COMPLICATIONS SNOMED Code(s): 29725408 Comment: - Longstanding IDDM, possibly type 1 (Patient states she has had since she was 6 ) - Peripheral neuropathy and retinopathy - Continue SSI and resume long acting (Glargine at 5 instead of NPH) (4) CAD (coronary artery disease) Current Visit: Yes Status: Acute Code(s): I25.10 - ATHSCL HEART DISEASE OF [place] CORONARY ARTERY W/O ANG PCTRS SNOMED Code(s): 95175214 Comment: - Questionable history of [place] with new HFrEF - Continue ASA and statin - Will need ischemic evaluation at some point in the future. (5) Seizure disorder Current Visit: Yes Status: Acute Code(s): G40.909 - EPILEPSY, UNSP, NOT INTRACTABLE, WITHOUT STATUS EPILEPTICUS SNOMED Code(s): 173281416 Comment: - Continue Phenytoin, Low level, stable on current dose - Seizure precautions (6) HTN (hypertension) Current Visit: Yes Status: Acute Code(s): I10 - ESSENTIAL (PRIMARY) HYPERTENSION SNOMED Code(s): 96012982 Comment: - Normotensive, continue Losartan, Nitro, Carvedilol, Metolazone (7) Full code status Current Visit: Yes Status: Acute Code(s): Z78.9 - OTHER SPECIFIED HEALTH STATUS SNOMED Code(s): 957915070 (8) DVT prophylaxis Current Visit: Yes Status: Acute Code(s): Z29.9 - ENCOUNTER FOR PROPHYLACTIC MEASURES, UNSPECIFIED SNOMED Code(s): 755444544 Comment: - Lovenox
[2020-01-28] MEDS ORDERED: Ferric Gluconate IV* 25 MG in NS 0.9% 50 ML* 50 ML IVPB ONE (11:45)
[2020-01-28] MEDS ORDERED: Insulin GLARGINE(*) 1 UNITS UNIT SUBCUT SCH (12:00)
[2020-01-28] MEDS: Insulin GLARGINE(*) 1 UNITS UNIT SUBCUT SCH (12:39)
[2020-01-28] MEDS ORDERED: Ferric Gluconate IV* 100 MG in NS 0.9% 100 ML* 100 ML IVPB ONE (13:00)
[2020-01-28 13:01] LABS: Corrected Retic Count 0.9 % (0.5-1.5); Hematocrit for Retic CNT 24 % (35-47); Immature Retic Fraction 0.44
[2020-01-28 13:22] LABS: Calcium 8.3 mg/dL (8.6-10.3)
[2020-01-28 13:24] LABS: Potassium 5.2 mmol/L (3.5-5.0)
[2020-01-28 13:27] LABS: BUN/Creatinine Ratio 23.8 (8-20); EGFR African American 39.4 (>60); EGFR Non-African American 32.6 (>60)
--- NOTE | 2020-01-28 13:51 | CONS ---
CONSULTATION REPORT: DATE OF CONSULT: 01/28/2020 REFERRING PHYSICIAN: HospitalistGavin PA. PRIMARY CARE PHYSICIAN: Dr. Espinoza. REASON FOR CONSULT: Anemia. HISTORY OF PRESENT ILLNESS: Ms. Blevins is a 64-year-old female with a past medical history significant for diabetes, complicated by renal insufficiency and retinopathy, history of seizures, who now presents with new onset hyponatremia and CHF. She was admitted on 01/25/20 and reports developing shortness of breath and fatigue starting on 12/18/19. Her breathing has been difficult, she has been wheezing, she has been very fatigued. She denies any mental status changes, forgetfulness, denies chest pains or palpitations. She also started developing increasing swelling in the lower extremities that would not get any better. She saw Dr. Espinoza several times, who recommended her to come into the emergency room. She has not had fevers, chills, night sweats. She reports that before 2 weeks ago and certainly before 12/18/19, she felt very well, denies any longer-term shortness of breath or fatigue. She does not have any dietary cravings. She has been told that she has been iron deficient in the past and took iron pills after . Her last menstrual period was 10/19/10. She has not had any bleeding that she is aware of and she reports a colonoscopy approximately 4 to 5 years ago done at the [facility]. I do not see a report for that in our system. Per the patient's report, it was negative. On admission, she was found to be anemic. She had a hemoglobin of 8.7 on admission, down to 7.9 on 01/27/20 and then 8.2 today. Her MCV is 92, platelets are 410,000, white count is 7.5 with a normal differential to slightly left shifted. She had an ESR checked that was 3, iron saturation at 20 % and ferritin of 21, LDH normal at 199, and B12 normal at 452. She was also markedly hyponatremic on admission with a sodium of 119, it was down to 117, down to 115 and now slowly improving, sodium of 119 today. She is hypoosmolar and her urine is unconcentrated. Given normal blood work and marked anemia, telecom sales consultant consulted. PAST MEDICAL HISTORY: 1. Diabetes, complicated by retinopathy and neuropathy. Legally blind. 2. Coronary artery disease. 3. Seizures. 4. High cholesterol. 5. Hypertension. 6. Chronic renal insufficiency. 7. New diagnosis, congestive heart failure. Echocardiogram 01/27/20, with an echo with an ejection fraction of 20% to 25%. PAST SURGICAL HISTORY: 1. Tubes in ears. 2. Tonsillectomy. 3. Left eye surgery. 4. x2. GYNECOLOGIC HISTORY: Last menstrual period 10 years ago. MEDICATIONS AT HOME: 1. Atorvastatin 80 mg a day. 2. Losartan 100 mg daily. 3. Vitamin D 2000 units a day. 4. Phenytoin 200 mg b.i.d. 5. Gabapentin 400 b.i.d. 6. Lasix 60 mg daily. 7. Cyclobenzaprine 10 mg t.i.d. p.r.n. 8. Magnesium oxide 250 b.i.d. 9. Omeprazole 20 a day. 10. [place]-3 fatty acids 1000 b.i.d. 11. Meloxicam 7.5 daily. 12. Insulin NovoLog 70/30, 20 units daily. 13. Fluoxetine 10 mg daily. 14. Aspirin 81 daily. 15. Levocetirizine 5 mg p.o. daily. ALLERGIES: PENICILLINS. FAMILY HISTORY: The patient's mother had an [place] in her 50s. Father had an [place] in his 60s. No clear history of blood disease or malignancy. SOCIAL HISTORY: . Lives with her daughter, who is her primary support and surrogate decision maker. She is full code on admission. Smokes 5 cigarettes per day. Denies alcohol or drug use. REVIEW OF SYSTEMS: HEENT: Blind, no oral lesions, no active dental disease. Pulmonary: Still short of breath, wheezing. Cardiac: Negative except for new diagnosis of CHF. GI: Eating well. Normal bowel movements. History of heartburn. : Polyuria. Musculoskeletal: Back pain, stable at this time. Neurologic: Negative except for being blind. Psychiatric: Denies being depressed. PHYSICAL EXAM: Vital Signs: Temperature 97.6, pulse 89, respirations 16, BP __ ____. HEENT: Oral mucosa moist, no lesions. Conjunctivae pale. Legally blind with retinal sclerosis, it is visible. Lungs: Clear to auscultation. Heart: Regular rhythm. S1, S2 seem distant. I could not hear murmurs. Abdomen : Obese, nontender, nondistended. No hepatosplenomegaly. Extremities: +2 lower extremity edema. Good pulses. Neurologic: Nonfocal except for being blind. DIAGNOSTIC STUDIES/LAB DATA: As noted above, also has a creatinine of 1.53, slightly elevated alkaline phosphatase of 177. Blood film: Normocytic but hypochromic, some aggregation, small and normal appearing platelets that are numerous, slight left shift, no toxic granulation, no early myeloid cells. ASSESSMENT AND PLAN: A 64-year-old female with diabetes and multiple complications, who now presents with severe congestive heart failure and marked hyponatremia. She also is anemic with borderline iron studies. Hyponatremia is new from December 2018, we have blood counts going back only to 01/26/20. She has a fairly marked normocytic anemia, given lack of clear symptoms I suspect this is a chronic condition. Differential diagnosis for anemia includes iron deficiency with a component of myelodysplasia, myelodysplasia, she could have consumption from cold agglutinin disease, infiltrative disease is possible. It is unclear if the anemia and the hyponatremia are correlated, etiology of hyponatremia unclear other then CHF intra-vascular depletion. 1. We would to like send additional blood work including a serum protein electrophoresis, and given some agglutination on her blood film, we will send for cold agglutinins, reticulocyte count. 2. She has borderline iron and we will give IV iron while she is in the hospital, Ferrlecit 125 mg daily. We will start oral iron on discharge. 3. She will need continued follow up as an outpatient. . 4. Avoid transfusion at this time. We will continue to follow. [id number]/[facility] #: [id number] [facility] MEDICAL CENTEREdwar
[2020-01-28] MEDS: Thiamine INJ* 250 MG in NS 0.9% 100 ML* 100 ML IV SCH (13:59)
[2020-01-28 21:42] LABS: Urine Appearance Turbid; Urine Bilirubin Negative (Negative); Urine Blood 3+ (Negative); Urine Color Amber; Urine Glucose Negative (Negative); Urine Ketones Negative (Negative); Urine Nitrite Negative (Negative); Urine Protein 1+(30 mg/dL) (Negative); Urine Specific Gravity 1.015 (1.010-1.030); Urine Urobilinogen Negative (Negative)
[2020-01-28] MEDS: Atorvastatin* 80 MG TAB PO SCH (22:05)
[2020-01-28 22:20] LABS: Urine Bacteria 1+ (Absent); Urine Red Blood Cell 3+(>10/hpf) (Absent); Urine Squamous Epithelial Cell Present (Absent); Urine White Blood Cell 3+(>20/hpf) (Absent)
[2020-01-28] MEDS: Acetaminophen TAB* 325 MG PO PRN (23:17)
[2020-01-29] MEDS: Enoxaparin(*) 40 MG/0.4 ML SYR SUBCUT SCH (06:03)
[2020-01-29 06:37] LABS: ABS Basophils 0.1 10^3/ul (0-0.2); ABS Eosinophils 0.4 10^3/ul (0-0.6); ABS Lymphocytes 1.2 10^3/ul (1.0-4.8); ABS Monocytes 0.6 10^3/ul (0-0.8); ABS Neutrophils 4.4 10^3/ul (1.5-7.7); Eosinophil % 6.2 %; Hematocrit 23 % (35-47); Hemoglobin 8.1 g/dL (12.0-16.0); Lymphocyte % 18.4 %; Mean Corpuscular HGB Conc 35 g/dL (31-36); Mean Corpuscular Hemoglobin 32 pg (27-31); Mean Corpuscular Volume 92 fL (80-97); Mean Platelet Volume 6.7 fL (7.4-10.4); Nucleated Red Blood Cells % 0.1; Platelet Count 393 10^3/uL (150-450); Red Blood Count 2.52 10^6 /uL (3.70-4.87); Red Cell Distribution Width 14 % (10-15); White Blood Count 6.7 10^3/uL (3.5-10.8)
[2020-01-29 06:55] LABS: Calcium 8.3 mg/dL (8.6-10.3); EGFR African American 32.9 (>60); EGFR Non-African American 27.2 (>60); Magnesium 1.9 mg/dL (1.9-2.7)
[2020-01-29 07:00] LABS: Potassium 5.4 mmol/L (3.5-5.0)
[2020-01-29] MEDS: Insulin LISPRO* 1 UNITS UNIT SUBCUT SCH ×4 (07:37→21:14)
[2020-01-29] MEDS ORDERED: Metolazone TAB* 5 MG PO SCH (08:30)
[2020-01-29] MEDS: FLUoxetine CAP* 10 MG PO SCH (08:37)
[2020-01-29] MEDS: Cholecalciferol TAB* 1000 UNITS PO SCH (08:37)
[2020-01-29] MEDS: Furosemide IV* 10 MG/ML 10 ML VIAL (100 MG) IV SCH ×2 (08:37→21:02)
[2020-01-29] MEDS: Gabapentin CAP(*) 400 MG PO SCH ×2 (08:37→21:02)
[2020-01-29] MEDS: Phenytoin CAP(*) 100 MG CAP.ER PO SCH ×2 (08:37→21:02)
[2020-01-29] MEDS: Aspirin EC TAB* 81 MG TAB.EC PO SCH (08:37)
[2020-01-29] MEDS: Nitro 2% OINT* (Nitroglycerin) 1 INCH/PAK PAK TOPICAL SCH ×2 (08:38→12:11)
[2020-01-29] MEDS: Pantoprazole TAB * 40 MG TAB PO SCH (08:38)
[2020-01-29] MEDS: Carvedilol TAB* 3.125 MG PO SCH ×2 (08:38→21:02)
[2020-01-29] MEDS: Patiromer POWDER* 8.4 GM PAK PO SCH (08:43)
[2020-01-29] MEDS ORDERED: Ferric Gluconate IV* 125 MG in NS 0.9% 100 ML* 100 ML IVPB SCH (12:00)
[2020-01-29] MEDS: Insulin GLARGINE(*) 1 UNITS UNIT SUBCUT SCH (12:15)
[2020-01-29] MEDS: Thiamine INJ* 250 MG in NS 0.9% 100 ML* 100 ML IV SCH (12:16)
[2020-01-29 13:39] LABS: Haptoglobin 203 mg/dL (30 - 200)
--- NOTE | 2020-01-29 14:33 | PN ---
Subjective Date of Service: 01/29/20 Interval History: Patient is feeling well today. Patient's legs are in pain. Patient was unable to handle the leg wraps. Patient denies CP, SOB, F/C, N/V, abdominal pain, diarrhea, dizziness, palpitations. Family History: Unchanged from Admission Social History: Unchanged from Admission Past Medical History: Unchanged from Admission Objective Active Medications: Acetaminophen (Tylenol Tab*) 650 mg PO Q6H PRN PRN Reason: MILD PAIN or TEMP > 100.4 Last Admin: 01/28/20 23:17 Dose: 650 mg Albuterol (Ventolin 2.5 Mg/3 Ml Neb.Roxy*) 2.5 mg INH Q6H PRN PRN Reason: SOB/WHEEZING Aspirin (Aspirin Ec Tab*) 81 mg PO DAILY [facility] Last Admin: 01/29/20 08:37 Dose: 81 mg Atorvastatin Calcium (Lipitor*) 80 mg PO 2100 [facility] Last Admin: 01/28/20 22:05 Dose: 80 mg Carvedilol (Coreg Tab*) 3.125 mg PO BID [facility] Last Admin: 01/29/20 08:38 Dose: 3.125 mg Cholecalciferol (Vitamin D Tab*) 2,000 units PO DAILY [facility] Last Admin: 01/29/20 08:37 Dose: 2,000 units Dextrose (D50w Syringe 50 Ml*) 12.5 gm IV PUSH .FOR FS < 60 - SS PRN PRN Reason: FS < 60 Enoxaparin Sodium (Lovenox(*)) 40 mg SUBCUT 0600 [facility] Last Admin: 01/29/20 06:03 Dose: 40 mg Fluoxetine HCl (Prozac Cap*) 10 mg PO DAILY [facility] Last Admin: 01/29/20 08:37 Dose: 10 mg Furosemide (Lasix Iv*) 80 mg IV TID [facility] Gabapentin (Neurontin Cap(*)) 400 mg PO BID [facility] Last Admin: 01/29/20 08:37 Dose: 400 mg Thiamine HCl 250 mg/ Sodium (Chloride) 102.5 mls @ 205 mls/hr IV Q24H [facility] Last Admin: 01/29/20 12:16 Dose: 205 mls/hr Insulin Glargine (Lantus(*)) 5 units SUBCUT Q24H [facility] Last Admin: 01/29/20 12:15 Dose: 5 units Insulin Human Lispro (Humalog*) 0 units SUBCUT ACHS [facility]; Protocol Last Admin: 01/29/20 12:15 Dose: 3 unit Nitroglycerin (Nitroglycerin 2% Oint*) 1 inch TOPICAL 0800,1400 [facility]; Protocol Last Admin: 01/29/20 12:11 Dose: Not Given Ondansetron HCl (Zofran Inj*) 4 mg IV Q6H PRN PRN Reason: NAUSEA Last Admin: 01/27/20 17:15 Dose: 4 mg Pantoprazole Sodium (Protonix Tab*) 40 mg PO DAILY [facility] Last Admin: 01/29/20 08:38 Dose: 40 mg Patiromer (Veltassa Powder*) 8.4 gm PO DAILY [facility] Last Admin: 01/29/20 08:43 Dose: 8.4 gm Phenytoin Sodium (Dilantin Cap(*)) 200 mg PO BID [facility] Last Admin: 01/29/20 08:37 Dose: 200 mg Vital Signs - 8 hr 01/29/20 01/29/20 01/29/20 07:15 07:43 08:37 Temperature 97.8 F Pulse Rate 81 Respiratory 20 20 20 Rate Blood Pressure 141/52 (mmHg) O2 Sat by Pulse 99 Oximetry 01/29/20 01/29/20 10:20 11:15 Temperature 98.5 F Pulse Rate 80 Respiratory 16 20 Rate Blood Pressure 135/53 (mmHg) O2 Sat by Pulse 100 Oximetry Oxygen Devices in Use Now: None Appearance: Patient is a 64yo female who appears stated age and is sitting in the bed in [facility]. Eyes: No Scleral Icterus, PERRLA, - - Opacified left iris. Ears/Nose/Mouth/Throat: NL Teeth, Lips, Gums, Clear Oropharnyx Neck: NL Appearance and Movements; NL JVP, Trachea Midline Respiratory: Symmetrical Chest Expansion and Respiratory Effort, Clear to Auscultation Cardiovascular: NL Sounds; No Murmurs; No JVD, RRR, - - 2+ B/L LE edema. Abdominal: NL Sounds; No Tenderness; No Distention, No Hepatosplenomegaly, - - Edema of the lower abdomen. Lymphatic: No Cervical Adenopathy Skin: No Nodules or Sclerosis, - - Weeping area on B/L Lower legs. Neurological: Alert and Oriented x 3, NL Muscle Strength and Tone, - - Neuropathy. Result Diagrams: 01/29/20 06:14 01/29/20 06:14 Microbiology and Other Data: Microbiology 01/26/20 03:28 Stool Occult Blood (JUDITH) - Final Stool Assess/Plan/Problems-Billing Assessment: Patient is a 64yo female with a PMH for DM I with diabetic retinopathy, CKD, here with new HFrEF and hyponatremia, with poor response to diuretics. - Patient Problems (1) HFrEF (heart failure with reduced ejection fraction) Current Visit: Yes Status: Acute Code(s): I50.20 - UNSPECIFIED SYSTOLIC ( CONGESTIVE) HEART FAILURE SNOMED Code(s): 193095548 Comment: - New onset HFrEF, EF 30-35% - Unclear etiology, possibly ischemia, might need cath in future - Appreciate Cardiology input - Continue Lasix IV TID, stop metolazone - Continue Carvedilol, Nitro, stop losartan for now. - Edema seems to be out of proportion to HF symptoms. - Wrap legs if tolerated. - Appreciate Nephrology consult. (2) Hyponatremia Current Visit: Yes Status: Acute Code(s): E87.1 - HYPO-OSMOLALITY AND HYPONATREMIA SNOMED Code(s): 71685965 Comment: - Hypotonic, hypervolemic - Treat with Lasix IV TID. - Monitor for improvement - No overt symptoms, seemed to be symptomatic on admission - Appreciate nephrology consultation. - Fluid restriction (3) Diabetes Current Visit: Yes Status: Acute Code(s): E11.9 - TYPE 2 DIABETES MELLITUS WITHOUT COMPLICATIONS SNOMED Code(s): 49384720 Comment: - Longstanding IDDM, possibly type 1 (Patient states she has had since she was 6 ) - Peripheral neuropathy and retinopathy - Continue SSI and resume long acting (Glargine at 5 instead of NPH) (4) CAD (coronary artery disease) Current Visit: Yes Status: Acute Code(s): I25.10 - ATHSCL HEART DISEASE OF [place] CORONARY ARTERY W/O ANG PCTRS SNOMED Code(s): 42145286 Comment: - Questionable history of MS with new HFrEF - Continue ASA and statin - Will need ischemic evaluation at some point in the future. (5) Seizure disorder Current Visit: Yes Status: Acute Code(s): G40.909 - EPILEPSY, UNSP, NOT INTRACTABLE, WITHOUT STATUS EPILEPTICUS SNOMED Code(s): 190220711 Comment: - Continue Phenytoin, Low level, stable on current dose - Seizure precautions (6) HTN (hypertension) Current Visit: Yes Status: Acute Code(s): I10 - ESSENTIAL (PRIMARY) HYPERTENSION SNOMED Code(s): 52892493 Comment: - Normotensive, continue Nitro, Carvedilol, Lasix (7) Full code status Current Visit: Yes Status: Acute Code(s): Z78.9 - OTHER SPECIFIED HEALTH STATUS SNOMED Code(s): 325712804 (8) DVT prophylaxis Current Visit: Yes Status: Acute Code(s): Z29.9 - ENCOUNTER FOR PROPHYLACTIC MEASURES, UNSPECIFIED SNOMED Code(s): 254301406 Comment: - Lovenox Status and Disposition: Inpatient for severe hyponatremia.
--- NOTE | 2020-01-29 17:24 | CONSULT ---
Consult Consult: Reasons for consult: Hyponatremia, acute kidney injury, volume overload, hyperkalemia Consulting provider: NICHELLE Gordon History of present illness: Ms. Blevins is a very nice 64-year-old woman who was admitted on 01/25/2020 as a transfer from [facility] for weakness and leg swelling. History is taken from the patient who is a good historian, requesting provider and review of medical records. Ms. Blevins has a long-standing history of type 1 diabetes mellitus. She was diagnosed when she was 6 years old. 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 She also has significant diabetic neuropathy. She has a history of heart disease: about 10-12 years ago she had a nuclear scan and she was told that the inferior part of her heart was not working quite perfectly and she had had a silent [place]. Other than that she was not known to have any recent cardiac events. She was not aware of having heart failure. She had mild chronic kidney disease before this admission. On December 05, 2018 her creatinine was 1.10 mg/dL. On admission her creatinine was 1.30 mg/dL and since then has been going up. Todays creatinine is 1.87 mg/dL. On May 02, 2018 her urine studies showed that she had microalbuminuria with microalbumin creatinine ratio 53 mg/g. There are no other urine studies available since then. On admission initial UA was negative for protein. She had a UA yesterday which showed presence of protein and white blood cell, bacteria. She does not have a history of hyponatremia. Potassium tended to run at the upper level of normal in the past. In regards to her acute illness, she states that on December 14 she was doing just fine. Creatinine was 1.1 mg/dL, estimated GFR 50 mL/min. sodium 139, potassium 5.1. At that day she had an appointment with her primary care physician and she was in her usual state of health. She states that on January 15 she sustained a fall out of nowhere and started experiencing increasing edema since then. She was seen at [facility] and was told to increase Lasix from 20 mg daily to 40 mg daily. Primary care provider followed up with her shortly and further increased her Lasix to 60 mg daily. Despite this changes her swelling continued to get worse and she gained about 25-30 pounds since her fall (Her usual weight is about 160 lbs) . she presented to the [facility] ER for further eval and she was found to have a dangerously low sodium concentration of 117 and a mildly elevated trop at 0.03. she was then transferred to [facility]. She was admitted in ICU and was successfully diuresed with boluses of iv Lasix. She was found not to have an acute coronary event , but Echo showed a new EF of 30 35%, combined with diastolic dysfunction and LVH. Her severe hypotonic hyponatremia was asymptomatic. Admission [na[ was 117 and ana to 121 today. She is on both fluid and sodium restriction. She was on metolazone, received a dose this am , and I stooped it. She has no complaints today, she states she feels back to her baseline. She denies use of OTC NSAIDs, but she was on prescribed Meloxicam at home. DM1 was not well controlled. ROS: Constitutional: no fevers, chills, night sweats, loss of appetite or weight loss CVS: no CP, SOB, PND, palpitations, leg swelling Respiratory: no cough, sputum production, wheezing, hemoptysis GI: no abdominal pain, N/V/D/C : no dysuria, gross hematuria, incontinence, hesitancy, slow urine flow All systems were reviewed and they were all negative unless otherwise specified Home medications: Atorvastatin 80 mg daily Losartan 100 mg daily Vitamin D 2000 units daily Dilantin 200 mg by mouth twice a day Gabapentin 400 mg twice a day Furosemide 60 mg daily Flexeril 10 mg 3 times a day as needed Magnesium oxide 250 mg twice a day Omeprazole 20 mg daily omega-3 fatty acids and thousand milligrams twice a day Mobic 7.5 mg daily Insulin 70/30: 22 24 units with breakfast, 8-12 units with dinner Fluoxetine 10 mg daily Aspirin 81 mg daily Xyzal 5 mg daily Albuterol inhaler 2 puffs 4 times a day as needed for shortness of breath Allergies: Penicillin acive meds Acetaminophen (Tylenol Tab*) 650 mg PO Q6H PRN PRN Reason: MILD PAIN or TEMP > 100.4 Last Admin: 01/28/20 23:17 Dose: 650 mg Albuterol (Ventolin 2.5 Mg/3 Ml Neb.Roxy*) 2.5 mg INH Q6H PRN PRN Reason: SOB/WHEEZING Aspirin (Aspirin Ec Tab*) 81 mg PO DAILY [facility] Last Admin: 01/29/20 08:37 Dose: 81 mg Atorvastatin Calcium (Lipitor*) 80 mg PO 2100 [facility] Last Admin: 01/28/20 22:05 Dose: 80 mg Carvedilol (Coreg Tab*) 3.125 mg PO BID [facility] Last Admin: 01/29/20 08:38 Dose: 3.125 mg Cholecalciferol (Vitamin D Tab*) 2,000 units PO DAILY [facility] Last Admin: 01/29/20 08:37 Dose: 2,000 units Dextrose (D50w Syringe 50 Ml*) 12.5 gm IV PUSH .FOR FS < 60 - SS PRN PRN Reason: FS < 60 Enoxaparin Sodium (Lovenox(*)) 40 mg SUBCUT 0600 [facility] Last Admin: 01/29/20 06:03 Dose: 40 mg Fluoxetine HCl (Prozac Cap*) 10 mg PO DAILY [facility] Last Admin: 01/29/20 08:37 Dose: 10 mg Furosemide (Lasix Iv*) 60 mg ov bid Gabapentin (Neurontin Cap(*)) 400 mg PO BID [facility] Last Admin: 01/29/20 08:37 Dose: 400 mg Thiamine HCl 250 mg/ Sodium (Chloride) 102.5 mls @ 205 mls/hr IV Q24H [facility] Last Admin: 01/29/20 12:16 Dose: 205 mls/hr Insulin Glargine (Lantus(*)) 5 units SUBCUT Q24H [facility] Last Admin: 01/29/20 12:15 Dose: 5 units Insulin Human Lispro (Humalog*) 0 units SUBCUT ACHS [facility]; Protocol Last Admin: 01/29/20 16:59 Dose: 9 unit Nitroglycerin (Nitroglycerin 2% Oint*) 1 inch TOPICAL 0800,1400 [facility]; Protocol Last Admin: 01/29/20 12:11 Dose: Not Given Ondansetron HCl (Zofran Inj*) 4 mg IV Q6H PRN PRN Reason: NAUSEA Last Admin: 01/27/20 17:15 Dose: 4 mg Pantoprazole Sodium (Protonix Tab*) 40 mg PO DAILY [facility] Last Admin: 01/29/20 08:38 Dose: 40 mg Patiromer (Veltassa Powder*) 8.4 gm PO DAILY [facility] Last Admin: 01/29/20 08:43 Dose: 8.4 gm Phenytoin Sodium (Dilantin Cap(*)) 200 mg PO BID [facility] Last Admin: 01/29/20 08:37 Dose: 200 mg Past medical history: Coronary artery disease with a previously known silent [place] Seizures Diabetes mellitus type 1 80 mg IV 3 times a day Hypertension Severe diabetic retinopathy with blindness Diabetic neuropathy Past surgical history Left eye surgery 2 ENT surgery Family history: No diabetes or kidney disease in the history. Father had hypertension. Mother had heart disease. She has 2 children and they are both healthy. Social history: She smokes 5 cigarettes per day. Denies drinking alcohol or using recreational drugs. . She lives with her family. She is on disability. Physical exam: Temp Pulse Resp BP SpO2 FiO2 97.2 F 81 20 125/41 92 01/29/20 15:15 01/29/20 15:15 01/29/20 15:15 01/29/20 15:15 01/29/20 15:15 Constitutional: No acute distress, pleasant and conversant. Head: Atraumatic and normocephalic. Nose, lips and ears appear normal. Eyes: moist conjunctivae, no ptosis, blind Neck: Supple, full range of motion, non-tender, no masses, trachea midline, no thyromegaly. Respiratory: Chest is clear to auscultation with good respiratory effort. Cardiovascular: Heart auscultation shows normal S1-S2, regular rate and rhythm, no murmur rubs or gallops. +3 hard , pitting edema in both legs up to the groin Gastrointestinal: Abdomen is soft, nontender and nondistended. No hepatosplenomegaly or masses appreciated. Musculoskeletal: Normal gait and station. No digital cyanosis or clubbing. No joint swelling or tenderness. No CVA tenderness. Left foot is wrapped in clean GÉNESIS wrap. Skin: No skin rashes, ulcers or lesions. Normal turgor and temperature. Neurologic: Speech fluent, no tremor, grossly nonfocal. Psychiatric: Appropriate affect, alert and oriented 3, intact judgment is insight. Assessment and plan: Ms. Blevins is a very nice 64-year-old woman with a long- standing history of type 1 diabetes mellitus, heart disease, blindness due to diabetic retinopathy, diabetic neuropathy, mild kidney dysfunction without proteinuria. She is admitted with severe hyponatremia, volume overload, heart failure, acute kidney injury. Volume overload due to decompensated systolic and diastolic heart failure. Continue diuresis with loop diuretics dose to maintain a negative volume balance. The daily weights, strict Is and Os. The goal is to achieve 160 pounds. Continue low sodium diet. Recommend Lasix 80 mg IV 3 times a day. She was on 60 mg IV twice a day at the time of my visit. Hypotonic hyponatremia with hypervolemia. Asymptomatic. Most probably due to heart failure Agree with the restriction of fluid intake to 1 L a day. Loop diuretics as above to achieve negative volume balance. Goal is to achieve a slow increase in the serum sodium concentration to at most 6 mEq/L per day in order to avoid delayed complications of pontine myelinolysis. TSH and cortisol were checked and there were both normal. Acute kidney injury on chronic kidney disease Acute kidney injury is due to cardiorenal syndrome given the presentation. The kidney function not improving next up would be to get a kidney ultrasound. Urine analysis on admission was negative for protein and negative for microscopic hematuria. Glomerulonephritis can be excluded. Chronic kidney disease most likely due to type 1 diabetes mellitus, nephrosclerosis and maybe prescription NSAIDs use. 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 Low potassium diet indicated. 2 g potassium diet per day. Agree with holding losartan.
[2020-01-29] MEDS: Atorvastatin* 80 MG TAB PO SCH (21:02)
[2020-01-30 06:25] LABS: ABS Basophils 0.1 10^3/ul (0-0.2); ABS Eosinophils 0.4 10^3/ul (0-0.6); ABS Monocytes 0.7 10^3/ul (0-0.8); ABS Neutrophils 4.1 10^3/ul (1.5-7.7); Eosinophil % 6.8 %; Hematocrit 23 % (35-47); Hemoglobin 7.8 g/dL (12.0-16.0); Lymphocyte % 15.8 %; Mean Corpuscular HGB Conc 34 g/dL (31-36); Mean Corpuscular Hemoglobin 31 pg (27-31); Mean Corpuscular Volume 91 fL (80-97); Mean Platelet Volume 6.6 fL (7.4-10.4); Nucleated Red Blood Cells % 0.2; Platelet Count 412 10^3/uL (150-450); Red Blood Count 2.52 10^6 /uL (3.70-4.87); Red Cell Distribution Width 14 % (10-15); White Blood Count 6.3 10^3/uL (3.5-10.8)
[2020-01-30 06:42] LABS: BUN/Creatinine Ratio 28.7 (8-20); Calcium 8.4 mg/dL (8.6-10.3); EGFR African American 34.8 (>60); EGFR Non-African American 28.8 (>60); Magnesium 1.8 mg/dL (1.9-2.7); Potassium 4.9 mmol/L (3.5-5.0)
[2020-01-30] MEDS ORDERED: Insulin GLARGINE(*) 1 UNITS UNIT SUBCUT SCH (07:35)
[2020-01-30] MEDS ORDERED: Magnesium Sulfate 1 GM IV* 1 GM/100 ML BAG IV ONE (07:36)
[2020-01-30] MEDS: Enoxaparin(*) 40 MG/0.4 ML SYR SUBCUT SCH (07:36)
[2020-01-30] MEDS: Nitro 2% OINT* (Nitroglycerin) 1 INCH/PAK PAK TOPICAL SCH (08:54)
[2020-01-30] MEDS: Cholecalciferol TAB* 1000 UNITS PO SCH (08:54)
[2020-01-30] MEDS: Gabapentin CAP(*) 400 MG PO SCH ×2 (08:54→21:42)
[2020-01-30] MEDS: Phenytoin CAP(*) 100 MG CAP.ER PO SCH ×2 (08:56→21:42)
[2020-01-30] MEDS: Carvedilol TAB* 3.125 MG PO SCH (08:56)
[2020-01-30] MEDS: FLUoxetine CAP* 10 MG PO SCH (08:56)
[2020-01-30] MEDS: Pantoprazole TAB * 40 MG TAB PO SCH (08:56)
[2020-01-30] MEDS: Furosemide IV* 10 MG/ML 10 ML VIAL (100 MG) IV SCH ×3 (08:56→21:41)
[2020-01-30] MEDS: Aspirin EC TAB* 81 MG TAB.EC PO SCH (08:56)
[2020-01-30] MEDS: Insulin LISPRO* 1 UNITS UNIT SUBCUT SCH ×4 (08:58→21:43)
[2020-01-30] MEDS ORDERED: Carvedilol TAB* 3.125 MG PO SCH (09:00)
[2020-01-30] MEDS: Patiromer POWDER* 8.4 GM PAK PO SCH (09:14)
[2020-01-30 09:27] LABS: HDL Cholesterol 89.1 mg/dL
--- NOTE | 2020-01-30 11:13 | PN ---
<Phyllis Correa - Last Filed: 01/30/20 11:31> Subjective Date of Service: 01/30/20 - severe LV dysfunction Interval History: No events last night, patient states edema, abdominal distention has improved since admission and she feels well. She still appears hypervolemic however, denies chest pain, dizziness, palpitations. She expressed desire to leave [place] due to feeling socially isolated without being able to see her family members. She reported that in the past she saw Dr. Paulson due to prior abnormal stress test, I spoke with his office who states LVEF was preserved in 2012 and fixed defect was in the inferoapical territory. She has not been seen by them since 2012. Records are to be sent. Medications Active Medications: Acetaminophen (Tylenol Tab*) 650 mg PO Q6H PRN PRN Reason: MILD PAIN or TEMP > 100.4 Last Admin: 01/28/20 23:17 Dose: 650 mg Albuterol (Ventolin 2.5 Mg/3 Ml Neb.Roxy*) 2.5 mg INH Q6H PRN PRN Reason: SOB/WHEEZING Aspirin (Aspirin Ec Tab*) 81 mg PO DAILY [facility] Last Admin: 01/30/20 08:56 Dose: 81 mg Atorvastatin Calcium (Lipitor*) 80 mg PO 2100 [facility] Last Admin: 01/29/20 21:02 Dose: 80 mg Carvedilol (Coreg Tab*) 6.25 mg PO BID [facility] Last Admin: 01/30/20 09:10 Dose: 6.25 mg Cholecalciferol (Vitamin D Tab*) 2,000 units PO DAILY [facility] Last Admin: 01/30/20 08:54 Dose: 2,000 units Dextrose (D50w Syringe 50 Ml*) 12.5 gm IV PUSH .FOR FS < 60 - SS PRN PRN Reason: FS < 60 Enoxaparin Sodium (Lovenox(*)) 40 mg SUBCUT 0600 [facility] Last Admin: 01/30/20 07:36 Dose: 40 mg Fluoxetine HCl (Prozac Cap*) 10 mg PO DAILY [facility] Last Admin: 01/30/20 08:56 Dose: 10 mg Furosemide (Lasix Iv*) 80 mg IV TID [facility] Last Admin: 01/30/20 08:56 Dose: 80 mg Gabapentin (Neurontin Cap(*)) 400 mg PO BID [facility] Last Admin: 01/30/20 08:54 Dose: 400 mg Thiamine HCl 250 mg/ Sodium (Chloride) 102.5 mls @ 205 mls/hr IV Q24H [facility] Last Admin: 01/29/20 12:16 Dose: 205 mls/hr Insulin Glargine (Lantus(*)) 3 units SUBCUT Q24H [facility] Last Admin: 01/30/20 08:58 Dose: 3 units Insulin Human Lispro (Humalog*) 0 units SUBCUT ACHS [facility]; Protocol Last Admin: 01/30/20 08:58 Dose: Not Given Nitroglycerin (Nitroglycerin 2% Oint*) 1 inch TOPICAL 0800,1400 [facility]; Protocol Last Admin: 01/30/20 08:54 Dose: 1 inch Ondansetron HCl (Zofran Inj*) 4 mg IV Q6H PRN PRN Reason: NAUSEA Last Admin: 01/27/20 17:15 Dose: 4 mg Pantoprazole Sodium (Protonix Tab*) 40 mg PO DAILY [facility] Last Admin: 01/30/20 08:56 Dose: 40 mg Patiromer (Veltassa Powder*) 8.4 gm PO DAILY [facility] Last Admin: 01/30/20 09:14 Dose: 8.4 gm Phenytoin Sodium (Dilantin Cap(*)) 200 mg PO BID [facility] Last Admin: 01/30/20 08:56 Dose: 200 mg Objective Vital Signs: Temp Pulse Resp BP Pulse Ox 98 F 73 16 133/63 98 01/30/20 03:13 01/30/20 03:13 01/30/20 08:54 01/30/20 03:13 01/30/20 03:13 Oxygen Devices in Use Now: None Appearance: Sitting upright in bed, NAD, a+o x3 , cooperative but weepy and expressing interest to leave AMA Eyes: No Scleral Icterus Ears/Nose/Mouth/Throat: NL Teeth, Lips, Gums, Clear Oropharnyx, Mucous Membranes Moist Neck: - - + JVP, no bruit Respiratory: Symmetrical Chest Expansion and Respiratory Effort, Clear to Auscultation Cardiovascular: NL Sounds; No Murmurs; No JVD, - - 2+ bilateral ascending edema into abdomen. LUE edematous, IV line patent Neurological: Alert and Oriented x 3 Lines/Tubes/Other Access: Clean, Dry and Intact Peripheral IV Laboratory Results: 01/30/20 06:07 01/30/20 06:07 Total Bilirubin 0.30 mg/dL (0.2-1.0) 01/27/20 14:57 AST 19 U/L (13-39) 01/27/20 14:57 ALT 14 U/L (7-52) 01/27/20 14:57 Alkaline Phosphatase 177 U/L (34-104) H 01/27/20 14:57 B-Natriuretic Peptide > 1300 pg/mL (<=100) H 01/26/20 06:23 Total Protein 5.5 g/dL (6.4-8.9) L 01/27/20 14:57 Albumin 2.8 g/dL (3.2-5.2) L 01/27/20 14:57 Globulin 2.7 g/dL (2-4) 01/27/20 14:57 Albumin/Globulin Ratio 1.0 (1-3) 01/27/20 14:57 Triglycerides 54 mg/dL 01/30/20 06:07 Cholesterol 166 mg/dL 01/30/20 06:07 LDL Cholesterol 66 mg/dL 01/30/20 06:07 HDL Cholesterol 89.1 mg/dL 01/30/20 06:07 TSH 1.16 mcIU/mL (0.34-5.60) 01/26/20 00:41 01/26/20 01/27/20 00:04 04:34 Troponin I 0.02 0.04 H* Laboratory Results - last 24 hr 01/27/20 01/28/20 01/28/20 04:34 12:45 12:46 WBC RBC Hgb Hct MCV MCH MCHC RDW Plt Count MPV Neut % (Auto) Lymph % (Auto) Rose[place] % (Auto) Eos % (Auto) Baso % (Auto) Absolute Neuts (auto) Absolute Lymphs (auto) Absolute Monos (auto) Absolute Eos (auto) Absolute Basos (auto) Absolute Nucleated RBC Nucleated RBC % Haptoglobin 203 H Sodium Potassium Chloride Carbon Dioxide Anion Gap BUN Creatinine Est GFR ( Amer) Est GFR (Non-Af Amer) BUN/Creatinine Ratio Glucose POC Glucose (mg/dL) Calcium Magnesium Erythropoietin 26.5 H Triglycerides Cholesterol LDL Cholesterol HDL Cholesterol Cold Agglutinin Titer <1:64 01/29/20 01/29/20 01/29/20 11:04 16:13 20:57 WBC RBC Hgb Hct MCV MCH MCHC RDW Plt Count MPV Neut % (Auto) Lymph % (Auto) Rosebud % (Auto) Eos % (Auto) Baso % (Auto) Absolute Neuts (auto) Absolute Lymphs (auto) Absolute Monos (auto) Absolute Eos (auto) Absolute Basos (auto) Absolute Nucleated RBC Nucleated RBC % Haptoglobin Sodium Potassium Chloride Carbon Dioxide Anion Gap BUN Creatinine Est GFR ( Amer) Est GFR (Non-Af Amer) BUN/Creatinine Ratio Glucose POC Glucose (mg/dL) 185 H 262 H 280 H Calcium Magnesium Erythropoietin Triglycerides Cholesterol LDL Cholesterol HDL Cholesterol Cold Agglutinin Titer 01/30/20 01/30/20 01/30/20 06:07 06:07 08:16 WBC 6.3 RBC 2.52 L Hgb 7.8 L Hct 23 L MCV 91 MCH 31 MCHC 34 RDW 14 Plt Count 412 MPV 6.6 L Neut % (Auto) 65.3 Lymph % (Auto) 15.8 Rosebud % (Auto) 10.8 Eos % (Auto) 6.8 Baso % (Auto) 1.3 Absolute Neuts (auto) 4.1 Absolute Lymphs (auto) 1.0 Absolute Monos (auto) 0.7 Absolute Eos (auto) 0.4 Absolute Basos (auto) 0.1 Absolute Nucleated RBC 0.0 Nucleated RBC % 0.2 Haptoglobin Sodium 125 L Potassium 4.9 Chloride 94 L Carbon Dioxide 24 Anion Gap 7 BUN 51 H Creatinine 1.78 H Est GFR ( Amer) 34.8 Est GFR (Non-Af Amer) 28.8 BUN/Creatinine Ratio 28.7 H Glucose 56 L POC Glucose (mg/dL) 95 Calcium 8.4 L Magnesium 1.8 L Erythropoietin Triglycerides 54 Cholesterol 166 LDL Cholesterol 66 HDL Cholesterol 89.1 Cold Agglutinin Titer Diagnostic Imaging: *[facility]* [place] [address] Fax #: [phone] Transthoracic Echocardiogram Patient: Sherita Blevins : 1955 Study Date: 01/27/2020 Age: 64 Gender: F HR: 91 bpm Height: 64 in /162.6 cm BSA: 1.94 m^2 Weight: 195.6 lb /88.9 kg BMI: 33.6 kg/m^2 *Maple Syrup Maker: Constance Mccall *Referring Physician: Mirta Brewer *Reading Physician: Favio Calix MD Indications: Congestive Heart Failure. History: Coronary artery disease. Risk factors: Current tobacco use. Hypertension. Diabetes mellitus. Conclusions Summary: - Left ventricle: The cavity size is at the upper limits of normal. Wall thickness is mildly increased. Systolic function is moderately reduced. The estimated ejection fraction is 30-35%. Features are consistent with a pseudonormal left ventricular filling pattern, with concomitant abnormal relaxation and increased filling pressure (grade 2 diastolic dysfunction). - Right ventricle: The cavity size is at the upper limits of normal. Systolic function is mildly reduced. - Tricuspid valve: There is trace to mild regurgitation. Study data: Transthoracic echocardiogram. Procedure: Transthoracic echocardiography was performed. Image quality was suboptimal. The study was technically limited due to poor acoustic window availability and Smoking history. Intravenous Definity , 2 mlswas administered. Complete 2D, spectral Doppler, and color flow This report is only to be considered final once signed by the Provider(s) as displayed in the "<Electronically Signed by >" field (s). Absence of a signature indicates the report is in a draft status and still needs to be finalized. In the event this document was created by someone other than the signing Provider, the individual initiating the document will be listed in the "Entered by:" or "Dictated by:" dillon. EKG Data: ECG 01/29/20; Sinus rhythm rate 79 with low voltage. Assessment/Plan #1 Newly diagnosed severe LV dysfunction; LVEF now 30-35% with a component of diastolic dysfunction. Patient presented with anasarca and 2 week h/o 15 lb weight gain, ascending lower extremity edema, sob. Etiology not clear, could be ischemic given h/o fixed inferoapical defect and type 1 diabetes. Hematology is consulted due to anemia. I spoke with nephrology Dr. Gordillo in regards to anasarca and volume management. Patient's renal function and Na+ have improved slightly, plan is to continue high dose IV lasix. Albumin replacement not recommended at this time but was addressed with nephrology. Will increase coreg to 12.5mg PO BID. Will d/c NTG patch. Troponin minimally elevated. She will need eventual LHC. TFTs are normal. Ferritin and % sat normal not suggestive of hemochromatosis. Not on ACEI/ARB/ARNI/Aldactone due to VIKA. Will follow. She is still decompensated. She had VT this morning at 0737. Her Na+ is slowly improving. Keep K>4, Mag >2. Will increase bblocker further. Will need lifevest. #2 h/o CAD with prior fixed small inferoapical defect on MPI report from 2005. On ASA 81/day, bblocker and statin therpay. LDL to be updated. Will need eventual LHC due to above #1. Denies chest pain. #3 h/o CKD; historically managed by PCP. Nephrology managing #4 Anemia; Dr. Holland following. #5 Disposition pending course. Will order lifevest. Patient considering leaving AMA. Will increase Coreg to 12.5mg Po BID. Will need eventual LHC due to newly diagnosed severe LV dysfunction. Attending: Michelle Rosen <Michelle Rosen - Last Filed: 01/30/20 14:43> Medications Active Medications: Acetaminophen (Tylenol Tab*) 650 mg PO Q6H PRN PRN Reason: MILD PAIN or TEMP > 100.4 Last Admin: 01/28/20 23:17 Dose: 650 mg Albuterol (Ventolin 2.5 Mg/3 Ml Neb.Roxy*) 2.5 mg INH Q6H PRN PRN Reason: SOB/WHEEZING Aspirin (Aspirin Ec Tab*) 81 mg PO DAILY [facility] Last Admin: 01/30/20 08:56 Dose: 81 mg Atorvastatin Calcium (Lipitor*) 80 mg PO 2100 [facility] Last Admin: 01/29/20 21:02 Dose: 80 mg Carvedilol (Coreg Tab*) 12.5 mg PO BID [facility] Cholecalciferol (Vitamin D Tab*) 2,000 units PO DAILY [facility] Last Admin: 01/30/20 08:54 Dose: 2,000 units Dextrose (D50w Syringe 50 Ml*) 12.5 gm IV PUSH .FOR FS < 60 - SS PRN PRN Reason: FS < 60 Enoxaparin Sodium (Lovenox(*)) 40 mg SUBCUT 0600 [facility] Last Admin: 01/30/20 07:36 Dose: 40 mg Fluoxetine HCl (Prozac Cap*) 10 mg PO DAILY [facility] Last Admin: 01/30/20 08:56 Dose: 10 mg Furosemide (Lasix Iv*) 80 mg IV TID [facility] Last Admin: 01/30/20 08:56 Dose: 80 mg Gabapentin (Neurontin Cap(*)) 400 mg PO BID [facility] Last Admin: 01/30/20 08:54 Dose: 400 mg Thiamine HCl 250 mg/ Sodium (Chloride) 102.5 mls @ 205 mls/hr IV Q24H [facility] Last Admin: 01/29/20 12:16 Dose: 205 mls/hr Insulin Glargine (Lantus(*)) 3 units SUBCUT Q24H [facility] Last Admin: 01/30/20 08:58 Dose: 3 units Insulin Human Lispro (Humalog*) 0 units SUBCUT [facility]; Protocol Last Admin: 01/30/20 08:58 Dose: Not Given Ondansetron HCl (Zofran Inj*) 4 mg IV Q6H PRN PRN Reason: NAUSEA Last Admin: 01/27/20 17:15 Dose: 4 mg Pantoprazole Sodium (Protonix Tab*) 40 mg PO DAILY [facility] Last Admin: 01/30/20 08:56 Dose: 40 mg Patiromer (Veltassa Powder*) 8.4 gm PO DAILY [facility] Last Admin: 01/30/20 09:14 Dose: 8.4 gm Phenytoin Sodium (Dilantin Cap(*)) 200 mg PO BID [facility] Last Admin: 01/30/20 08:56 Dose: 200 mg Objective Vital Signs: Temp Pulse Resp BP Pulse Ox 98.9 F 84 20 147/54 98 01/30/20 11:15 01/30/20 11:15 01/30/20 11:15 01/30/20 11:15 01/30/20 11:15 Laboratory Results: 01/30/20 06:07 01/30/20 06:07 Total Bilirubin 0.30 mg/dL (0.2-1.0) 01/27/20 14:57 AST 19 U/L (13-39) 01/27/20 14:57 ALT 14 U/L (7-52) 01/27/20 14:57 Alkaline Phosphatase 177 U/L (34-104) H 01/27/20 14:57 B-Natriuretic Peptide > 1300 pg/mL (<=100) H 01/26/20 06:23 Total Protein 5.5 g/dL (6.4-8.9) L 01/27/20 14:57 Albumin 2.8 g/dL (3.2-5.2) L 01/27/20 14:57 Globulin 2.7 g/dL (2-4) 01/27/20 14:57 Albumin/Globulin Ratio 1.0 (1-3) 01/27/20 14:57 Triglycerides 54 mg/dL 01/30/20 06:07 Cholesterol 166 mg/dL 01/30/20 06:07 LDL Cholesterol 66 mg/dL 01/30/20 06:07 HDL Cholesterol 89.1 mg/dL 01/30/20 06:07 TSH 1.16 mcIU/mL (0.34-5.60) 01/26/20 00:41 01/26/20 01/27/20 00:04 04:34 Troponin I 0.02 0.04 H* Assessment/Plan I personally saw and examined the patient. CORRECTION: no VT, this was artifact. RECORDS from DR TOVAR (Holland) reviewed 2005 nuclear: EF 63%, fixed inferior apical small defect 2005 ECHO: EF 55%, mild LVH, poor image quality. Exam Date: 01/30/20 1059 ADM Status: ADM IN Order Information: VL UPPER EXT VEIN DOPPLER LEFT Accession Number: [id number] CPT: 77068 HISTORY: Pain and swelling and a left upper extremity IV site. COMPARISON: Noncontrast CT January 25, 2020 TECHNIQUE: Multiple transverse and longitudinal ultrasound images were obtained of the veins of the left upper extremity using grayscale, color Doppler, and spectral Doppler imaging with and without compression and with augmentation. FINDINGS: VEINS: The axillary, brachial, basilic and cephalic are compressible throughout their course, with normal flow on color Doppler imaging and normal response to augmentation on spectral Doppler imaging. The subclavian vein exhibits appropriate augmentation and phasicity. The radial and ulnar veins are compressible. Evidence of adequate flow is identified in the right internal jugular and subclavian vein as well. At a superficial vein in the antecubital fossa there is partially occlusive thrombus correlating to the site of the IV. SOFT TISSUES: Grossly normal. IMPRESSION: 1. No sonographic evidence of deep vein thrombosis. 2. Nonocclusive thrombus in a superficial vein in the antecubital fossa corresponding to the site of the IV. Review of relevant prior imaging includes CT of the chest abdomen and pelvis dated January 25, 2020 that reveals coarse calcification at the aortoiliac arteries causing an indeterminate degree of stenosis. After the patient's more imminent medical concerns have resolved, please correlate to signs or symptoms of pelvic and/or lower extremity arterial insufficiency. <Electronically signed by Mario Chang MD in [place]> 01/30/20 1345 As above, pt presented with SOB, LE edema and weight gain. No diet changes, does eat out some. Found anemic, hyponatremic, acute on chronic CKD, severe CM, PA pressure estimated at 40 mmHg. She feels back to normal now. No SOB Exam: Clear lungs, no murmurs, 3+ edema to upper thighs. CM: I agree with above IV aggressive diuretics, Coreg and avoid ACEI and relatives for now. Ultimately would like to know if ischemic vs non ischemic via cardiac catheterization, but feel remains too high risk, not optimized wrt Na+, BUN, Cr and anemia. Don't feel pt with candidate for SGLT2i due to CKD and Type 1 DM (for diuretic effect). Agree with titrating COREG for now. RV edema out of proportion to RV findings and PA pressure, venous Doppler unrevealing wrt DVT but could she have incompetent veins or lymphedema component ? PAD discribed above confirming her risk for EBSS and CAD. Very high risk patient with multiple organ system problems that all could be related to Type 1 DM, vascular disease and risks. Aggressive medical management for now. When able to be cathed, L+R heart cath recommended.
[2020-01-30 13:33] LABS: Albumin 2.3 g/dL (3.4-4.7); Albumin/Globulin Ratio 0.79; Gamma Globulin 0.9 g/dL (0.6-1.6); Total Protein(PEP) 5.3 g/dL (6.3 - 7.9)
--- NOTE | 2020-01-30 13:40 | PN ---
Subjective Date of Service: 01/30/20 Interval History: Patient is feeling better today. Within improvement in her leg swelling and sodium, she feels like her strength has improved. Patient denies CP, SOB, Palpitations, F/C, N/V, abdominal pain, diarrhea, or other pain. Patient cannot think of any happening to correspond to her telemetry abnormality this AM. Family History: Unchanged from Admission Social History: Unchanged from Admission Past Medical History: Unchanged from Admission Objective Active Medications: Acetaminophen (Tylenol Tab*) 650 mg PO Q6H PRN PRN Reason: MILD PAIN or TEMP > 100.4 Last Admin: 01/28/20 23:17 Dose: 650 mg Albuterol (Ventolin 2.5 Mg/3 Ml Neb.Roxy*) 2.5 mg INH Q6H PRN PRN Reason: SOB/WHEEZING Aspirin (Aspirin Ec Tab*) 81 mg PO DAILY [facility] Last Admin: 01/30/20 08:56 Dose: 81 mg Atorvastatin Calcium (Lipitor*) 80 mg PO 2100 [facility] Last Admin: 01/29/20 21:02 Dose: 80 mg Carvedilol (Coreg Tab*) 12.5 mg PO BID [facility] Cholecalciferol (Vitamin D Tab*) 2,000 units PO DAILY [facility] Last Admin: 01/30/20 08:54 Dose: 2,000 units Dextrose (D50w Syringe 50 Ml*) 12.5 gm IV PUSH .FOR FS < 60 - SS PRN PRN Reason: FS < 60 Enoxaparin Sodium (Lovenox(*)) 40 mg SUBCUT 0600 [facility] Last Admin: 01/30/20 07:36 Dose: 40 mg Fluoxetine HCl (Prozac Cap*) 10 mg PO DAILY [facility] Last Admin: 01/30/20 08:56 Dose: 10 mg Furosemide (Lasix Iv*) 80 mg IV TID [facility] Last Admin: 01/30/20 08:56 Dose: 80 mg Gabapentin (Neurontin Cap(*)) 400 mg PO BID [facility] Last Admin: 01/30/20 08:54 Dose: 400 mg Thiamine HCl 250 mg/ Sodium (Chloride) 102.5 mls @ 205 mls/hr IV Q24H [facility] Last Admin: 01/29/20 12:16 Dose: 205 mls/hr Insulin Glargine (Lantus(*)) 3 units SUBCUT Q24H [facility] Last Admin: 01/30/20 08:58 Dose: 3 units Insulin Human Lispro (Humalog*) 0 units SUBCUT ACHS [facility]; Protocol Last Admin: 01/30/20 08:58 Dose: Not Given Ondansetron HCl (Zofran Inj*) 4 mg IV Q6H PRN PRN Reason: NAUSEA Last Admin: 01/27/20 17:15 Dose: 4 mg Pantoprazole Sodium (Protonix Tab*) 40 mg PO DAILY [facility] Last Admin: 01/30/20 08:56 Dose: 40 mg Patiromer (Veltassa Powder*) 8.4 gm PO DAILY [facility] Last Admin: 01/30/20 09:14 Dose: 8.4 gm Phenytoin Sodium (Dilantin Cap(*)) 200 mg PO BID [facility] Last Admin: 01/30/20 08:56 Dose: 200 mg Vital Signs - 8 hr 01/30/20 01/30/20 01/30/20 07:15 08:00 08:54 Temperature 97.7 F Pulse Rate 77 Respiratory 20 16 16 Rate Blood Pressure 132/46 (mmHg) O2 Sat by Pulse 99 Oximetry 01/30/20 11:15 Temperature 98.9 F Pulse Rate 84 Respiratory 20 Rate Blood Pressure 147/54 (mmHg) O2 Sat by Pulse 98 Oximetry Oxygen Devices in Use Now: None Appearance: Patient is a 64yo female who appears stated age and is sitting in the bed in [facility]. Eyes: No Scleral Icterus, - - Left Iris opacified Ears/Nose/Mouth/Throat: NL Teeth, Lips, Gums, Clear Oropharnyx, Mucous Membranes Moist Neck: NL Appearance and Movements; NL JVP, Trachea Midline Respiratory: Symmetrical Chest Expansion and Respiratory Effort, Clear to Auscultation Cardiovascular: NL Sounds; No Murmurs; No JVD, - - 2+ B/L LE edema. Abdominal: NL Sounds; No Tenderness; No Distention, No Hepatosplenomegaly, - - Edema of the abdominal skin. Lymphatic: No Cervical Adenopathy Extremities: No Clubbing, Cyanosis Skin: No Nodules or Sclerosis Neurological: Alert and Oriented x 3, NL Muscle Strength and Tone, - - Neuropathy Result Diagrams: 01/30/20 06:07 01/30/20 06:07 Microbiology and Other Data: Microbiology 01/26/20 03:28 Stool Occult Blood (JUDITH) - Final Stool Assess/Plan/Problems-Billing Assessment: Patient is a 64yo female with a PMH for DM I with diabetic retinopathy, CKD, here with new HFrEF and hyponatremia, with poor response to diuretics. - Patient Problems (1) HFrEF (heart failure with reduced ejection fraction) Current Visit: Yes Status: Acute Code(s): I50.20 - UNSPECIFIED SYSTOLIC ( CONGESTIVE) HEART FAILURE SNOMED Code(s): 969525850 Comment: - New onset HFrEF, EF 30-35% - Unclear etiology, possibly ischemia, will need cath in future - Appreciate Cardiology input - Continue Lasix IV TID, - Increase Carvedilol, Transition Nitro to oral nitrates, stop losartan for now. - Edema seems to be out of proportion to HF symptoms. SPEP pending - Wrap legs if tolerated. - Appreciate Nephrology consult. Monitor BMP closely. (2) Hyponatremia Current Visit: Yes Status: Acute Code(s): E87.1 - HYPO-OSMOLALITY AND HYPONATREMIA SNOMED Code(s): 48549615 Comment: - Hypotonic, hypervolemic - Treat with Lasix IV TID. - Monitor for improvement - No overt symptoms at admission, feels strength is improving with sodium improvement. - Appreciate nephrology consultation. - Fluid restriction (3) Diabetes Current Visit: Yes Status: Acute Code(s): E11.9 - TYPE 2 DIABETES MELLITUS WITHOUT COMPLICATIONS SNOMED Code(s): 75224433 Comment: - Longstanding IDDM, possibly type 1 (Patient states she has had since she was 6 ) - Peripheral neuropathy and retinopathy - Continue SSI and resume long acting (Glargine at 5 instead of NPH) (4) CAD (coronary artery disease) Current Visit: Yes Status: Acute Code(s): I25.10 - ATHSCL HEART DISEASE OF [place] CORONARY ARTERY W/O ANG PCTRS SNOMED Code(s): 54173241 Comment: - Questionable history of LA with new HFrEF - Continue ASA and statin, LDL 68 - Will need ischemic evaluation at some point in the future. (5) Seizure disorder Current Visit: Yes Status: Acute Code(s): G40.909 - EPILEPSY, UNSP, NOT INTRACTABLE, WITHOUT STATUS EPILEPTICUS SNOMED Code(s): 462008001 Comment: - Continue Phenytoin, Low level, stable on current dose - Seizure precautions (6) HTN (hypertension) Current Visit: Yes Status: Acute Code(s): I10 - ESSENTIAL (PRIMARY) HYPERTENSION SNOMED Code(s): 96852574 Comment: - Normotensive, Increase Carvedilol, stop Nitro, hold Losartan (7) Full code status Current Visit: Yes Status: Acute Code(s): Z78.9 - OTHER SPECIFIED HEALTH STATUS SNOMED Code(s): 635943662 (8) DVT prophylaxis Current Visit: Yes Status: Acute Code(s): Z29.9 - ENCOUNTER FOR PROPHYLACTIC MEASURES, UNSPECIFIED SNOMED Code(s): 925822886 Comment: - Lovenox Status and Disposition: Inpatient for severe hyponatremia. Patient wants to be discharged as soon as possible.
[2020-01-30] MEDS: Thiamine INJ* 250 MG in NS 0.9% 100 ML* 100 ML IV SCH (14:27)
[2020-01-30 14:47] LABS: BUN/Creatinine Ratio 28.3 (8-20); Calcium 8.9 mg/dL (8.6-10.3); EGFR Non-African American 29.7 (>60)
[2020-01-30 14:49] LABS: Potassium 5.1 mmol/L (3.5-5.0)
--- NOTE | 2020-01-30 17:37 | PN ---
Progress Note - Progress Note Date of Service: 01/30/20 - Nephrology follow up Note: CC: Acute kidney injury, hyponatremia, decompensated heart failure, hyperkalemia History of present illness: Mrs. Blevins is doing better today. She feels less short of breath. She had a good diuretic response to Lasix 80 mg IV 3 times a day which was started yesterday afternoon. Serum sodium concentration increases slowly. She has no troubles with fluid restriction. She states that she does not feel thirsty. She had a Doppler ultrasound of the left upper extremity due to swelling and a DVT was ruled out. Kidney function is slowly improving. Blood pressure is well controlled Review of systems: No shortness of breath at rest. No chest pain, no palpitations. No cough or sputum production. No urinary symptoms. No fevers or chills. No abdominal pain, nausea or vomiting. Studies during this admission: 01/27/2020: TTE: Left ventricular systolic ejection fraction 30-35% which is new. Grade 2 diastolic dysfunction. Right ventricle with slightly reduced systolic function. Pulmonary artery pressure mildly elevated at 40 mmHg. Kidney US not needed UA: negative for protein and microscopic hematuria Intake & Output 01/28/20 01/29/20 01/30/20 01/31/20 06:59 06:59 06:59 06:59 Intake Total 1130 780 600 Output Total 003 935 4168 1500 Balance 729 55 -1200 -1500 Weight 91.354 kg 92.261 kg 91.172 kg Intake: Oral 480 780 600 Salazar [place]rr[place] Amount 650 Output: Urine 0 725 1800 1500 Salazar 401 Other: # Bowel Movements 0 Estimated Stool Amount Small Medium # Voids 2 Weight: 91.172 kg Physical exam: Temp Pulse Resp BP SpO2 FiO2 98.9 F 84 20 147/54 98 01/30/20 11:15 01/30/20 11:15 01/30/20 11:15 01/30/20 11:15 01/30/20 11:15 Constitutional: No acute distress pleasant and conversant. Patient lying almost flat in bed without any distress. Chest is clear to auscultation Abdomen is soft and nontender and nondistended Heart exam shows S1, S2, regular rate and rhythm at my examination. She continues to have significant bilateral lower extremities hard and pitting edema extending up to the groins Psychiatric she is alert and oriented 3, appropriate affect, judgment and insight appropriate, mood is normal. Speech is fluent. Laboratory Last Values 0 WBC 6.3 10^3/uL (3.5-10.8) 01/30/20 06:07 RBC 2.52 10^6 /uL (3.70-4.87) L 01/30/20 06:07 RBC (Retic) 2.60 10^6/uL (3.70-4.87) L 01/28/20 12:45 Hgb 7.8 g/dL (12.0-16.0) L 01/30/20 06:07 Hct 23 % (35-47) L 01/30/20 06:07 HCT (Retic) 24 % (35-47) L 01/28/20 12:45 MCV 91 fL (80-97) 01/30/20 06:07 MCH 31 pg (27-31) 01/30/20 06:07 MCHC 34 g/dL (31-36) 01/30/20 06:07 RDW 14 % (10-15) 01/30/20 06:07 Plt Count 412 10^3/uL (150-450) 01/30/20 06:07 MPV 6.6 fL (7.4-10.4) L 01/30/20 06:07 Neut % (Auto) 65.3 % 01/30/20 06:07 Lymph % (Auto) 15.8 % 01/30/20 06:07 Terrell % (Auto) 10.8 % 01/30/20 06:07 Eos % (Auto) 6.8 % 01/30/20 06:07 Baso % (Auto) 1.3 % 01/30/20 06:07 Absolute Neuts (auto) 4.1 10^3/ul (1.5-7.7) 01/30/20 06:07 Absolute Lymphs (auto) 1.0 10^3/ul (1.0-4.8) 01/30/20 06:07 Absolute Monos (auto) 0.7 10^3/ul (0-0.8) 01/30/20 06:07 Absolute Eos (auto) 0.4 10^3/ul (0-0.6) 01/30/20 06:07 Absolute Basos (auto) 0.1 10^3/ul (0-0.2) 01/30/20 06:07 Absolute Nucleated RBC 0.0 10^3/ul 01/30/20 06:07 Nucleated RBC % 0.2 01/30/20 06:07 ESR 3 mm/Hr (0-29) 01/27/20 04:42 Retic Count, Calc 1.7 % (0.5-1.5) H 01/28/20 12:45 Corrected Retic Count 0.9 % (0.5-1.5) 01/28/20 12:45 Retic Shift Factor 2.0 01/28/20 12:45 Retic Production Index 0.50 01/28/20 12:45 Immature Retic Fraction 0.44 01/28/20 12:45 Mean Retic Volume 120.3 01/28/20 12:45 Haptoglobin 203 mg/dL (30 - 200) H 01/27/20 04:34 ABG pH 7.40 (7.35-7.45) 01/27/20 05:30 ABG pCO2 37 mmHg (35-45) 01/27/20 05:30 ABG pO2 89 mmHg (80-100) 01/27/20 05:30 ABG HCO3 23.8 mmol/L (19-31) 01/27/20 05:30 ABG O2 Saturation 99.6 % (94.0-98.0) H 01/27/20 05:30 ABG Base Excess -1.5 mmol/L (-2.0-2.0) 01/27/20 05:30 Sodium 124 mmol/L (135-145) L 01/30/20 14:15 Potassium 5.1 mmol/L (3.5-5.0) H 01/30/20 14:15 Chloride 90 mmol/L (101-111) L 01/30/20 14:15 Carbon Dioxide 25 mmol/L (22-32) 01/30/20 14:15 Anion Gap 9 mmol/L (2-11) 01/30/20 14:15 BUN 49 mg/dL (6-24) H 01/30/20 14:15 Creatinine 1.73 mg/dL (0.51-0.95) H 01/30/20 14:15 Est GFR ( Amer) 36.0 (>60) 01/30/20 14:15 Est GFR (Non-Af Amer) 29.7 (>60) 01/30/20 14:15 BUN/Creatinine Ratio 28.3 (8-20) H 01/30/20 14:15 Glucose 291 mg/dL (70-100) H 01/30/20 14:15 POC Glucose (mg/dL) 246 mg/dL (70-100) H 01/30/20 17:05 Serum Osmolality 254 mOsm/kg (275-295) L 01/26/20 00:41 Calcium 8.9 mg/dL (8.6-10.3) 01/30/20 14:15 Magnesium 1.8 mg/dL (1.9-2.7) L 01/30/20 06:07 Iron 64 ug/dL (50-212) 01/26/20 17:56 TIBC 321 mcg/dL (250-450) 01/26/20 17:56 % Saturation 20 % (15-55) 01/26/20 17:56 Unsat Iron Binding < 306 ug/dL 01/26/20 17:56 Transferrin 229 mg/dL (203-362) 01/26/20 17:56 Erythropoietin 26.5 mIU/mL (2.6 - 18.5) H 01/28/20 12:45 Ferritin 20.8 ng/mL (11-307) 01/26/20 17:56 Total Bilirubin 0.30 mg/dL (0.2-1.0) 01/27/20 14:57 AST 19 U/L (13-39) 01/27/20 14:57 ALT 14 U/L (7-52) 01/27/20 14:57 Alkaline Phosphatase 177 U/L (34-104) H 01/27/20 14:57 Lactate Dehydrogenase 199 U/L (140-271) 01/27/20 04:34 Troponin I 0.04 ng/mL (<0.03) H* 01/27/20 04:34 C-Reactive Protein 63.13 mg/L (<8.01) H 01/27/20 04:34 B-Natriuretic Peptide > 1300 pg/mL (<=100) H 01/26/20 06:23 Total Protein 5.5 g/dL (6.4-8.9) L 01/27/20 14:57 Total Protein (PEP) 5.3 g/dL (6.3 - 7.9) L 01/27/20 04:34 Albumin 2.8 g/dL (3.2-5.2) L 01/27/20 14:57 Albumin (PEP) 2.3 g/dL (3.4-4.7) L 01/27/20 04:34 Globulin 2.7 g/dL (2-4) 01/27/20 14:57 Albumin/Globulin Ratio 1.0 (1-3) 01/27/20 14:57 Albumin/Globulin (PEP) 0.79 01/27/20 04:34 Prealbumin 15 mg/dL (18-38) L 01/27/20 04:34 Yiduw-7-Bpswilnkg 0.2 g/dL (0.1-0.3) 01/27/20 04:34 Gypqf-1-Kwpivxbri 1.0 g/dL (0.6-1.0) 01/27/20 04:34 Cvzt-8-Ycpxklif 0.8 g/dL (0.7-1.2) 01/27/20 04:34 Gamma Globulins 0.9 g/dL (0.6-1.6) 01/27/20 04:34 M-Jimmy Not Reportable 01/27/20 04:34 M-Jimmy 2 Not Reportable 01/27/20 04:34 PEP Impression See comment 01/27/20 04:34 Triglycerides 54 mg/dL 01/30/20 06:07 Cholesterol 166 mg/dL 01/30/20 06:07 LDL Cholesterol 66 mg/dL 01/30/20 06:07 HDL Cholesterol 89.1 mg/dL 01/30/20 06:07 Vitamin B12 452 pg/mL (180-914) 01/26/20 17:56 Folate 10.49 ng/mL (>3.99) 01/26/20 17:56 TSH 1.16 mcIU/mL (0.34-5.60) 01/26/20 00:41 Cortisol 9.23 mcg/dL 01/27/20 04:34 U active medications: Acetaminophen (Tylenol Tab*) 650 mg PO Q6H PRN PRN Reason: MILD PAIN or TEMP > 100.4 Last Admin: 01/28/20 23:17 Dose: 650 mg Albuterol (Ventolin 2.5 Mg/3 Ml Neb.Roxy*) 2.5 mg INH Q6H PRN PRN Reason: SOB/WHEEZING Aspirin (Aspirin Ec Tab*) 81 mg PO DAILY [facility] Last Admin: 01/30/20 08:56 Dose: 81 mg Atorvastatin Calcium (Lipitor*) 80 mg PO 2100 [facility] Last Admin: 01/29/20 21:02 Dose: 80 mg Carvedilol (Coreg Tab*) 12.5 mg PO BID [facility] Cholecalciferol (Vitamin D Tab*) 2,000 units PO DAILY [facility] Last Admin: 01/30/20 08:54 Dose: 2,000 units Dextrose (D50w Syringe 50 Ml*) 12.5 gm IV PUSH .FOR FS < 60 - SS PRN PRN Reason: FS < 60 Enoxaparin Sodium (Lovenox(*)) 40 mg SUBCUT 0600 [facility] Last Admin: 01/30/20 07:36 Dose: 40 mg Fluoxetine HCl (Prozac Cap*) 10 mg PO DAILY [facility] Last Admin: 01/30/20 08:56 Dose: 10 mg Furosemide (Lasix Iv*) 80 mg IV TID [facility] Last Admin: 01/30/20 14:27 Dose: 80 mg Gabapentin (Neurontin Cap(*)) 400 mg PO BID [facility] Last Admin: 01/30/20 08:54 Dose: 400 mg Thiamine HCl 250 mg/ Sodium (Chloride) 102.5 mls @ 205 mls/hr IV Q24H [facility] Last Admin: 01/30/20 14:27 Dose: 205 mls/hr Insulin Glargine (Lantus(*)) 3 units SUBCUT Q24H [facility] Last Admin: 01/30/20 08:58 Dose: 3 units Insulin Human Lispro (Humalog*) 0 units SUBCUT ACHS [facility]; Protocol Last Admin: 01/30/20 14:22 Dose: 9 unit Ondansetron HCl (Zofran Inj*) 4 mg IV Q6H PRN PRN Reason: NAUSEA Last Admin: 01/27/20 17:15 Dose: 4 mg Pantoprazole Sodium (Protonix Tab*) 40 mg PO DAILY [facility] Last Admin: 01/30/20 08:56 Dose: 40 mg Patiromer (Veltassa Powder*) 8.4 gm PO DAILY [facility] Last Admin: 01/30/20 09:14 Dose: 8.4 gm Phenytoin Sodium (Dilantin Cap(*)) 200 mg PO BID [facility] Last Admin: 01/30/20 08:56 Dose: 200 mg Assessment and plan: Ms. Blevins is a very nice 64-year-old woman with a long- standing history of type 1 diabetes mellitus, heart disease, blindness due to diabetic retinopathy, diabetic neuropathy, and mild kidney dysfunction without proteinuria. She was admitted with severe hyponatremia, new onset left ventricular systolic dysfunction with volume overload, and acute kidney injury. I was contacted earlier in the day by Phyllis Correa NP of cardiology with questions related to kidney function, hyponatremia and timing of the cardiac cath which I will address in my comments below. 1. Acute kidney injury due to cardiorenal syndrome a. Kidney function has improved slightly since yesterday with negative volume balance. b. Continue diuresis to maintain negative volume balance c. I would continue the same Lasix 80 mg IV 3 times a day d. Recheck kidney function in the morning 2. CKD stage 3 , most probably due to DM1, nephrosclerosis and prescription NSAIDs a. Will need to stop Mobic or other NSAIDs as OP b. Non proteinuric 3. Hypotonic hyponatremia with hypervolemia a. Hyponatremia improving at a slow rate b. Avoid rapid correction of hyponatremia due to risk of pontine myelinolysis. c. Desired rate of correction of the serum sodium concentration is at about 6 mEq/L per day 4. Ischemic cardiomyopathy with systolic heart failure and ventricular arrhythmia. a. If her current cardiac situation is deemed to be life-threatening, cardiac catheterization should be done irrespective of serum creatinine levels. b. If cardiology service considers that cardiac catheterization is not emergent, the best timing of her cardiac cath would be when her serum creatinine goes back to baseline or stabilizes at least for a couple days. She is at risk for cholesterol embolization with a femoral approach. Although contrast-induced nephropathy is subject of debate in the current days, I would advise caution, and maintain the old recommendations of using the least amount of non-ionic, iso osmolal contrast, avoid NSAIDs, ARB and Maxwell inh and volume depletion before and after the procedure. Radial approach is preferred. 5. Systolic and diastolic heart failure with anasarca: continue diuretics to maintain negative volume balance and low salt diet. 6. Hyperkalemia : potassium still a little high at 5.1 a. I changed her diet to renal diet (low salt and low K ) b. Recheck labs in the am.
[2020-01-30] MEDS: Atorvastatin* 80 MG TAB PO SCH (21:42)
[2020-01-30] MEDS: Carvedilol TAB* 6.25 MG PO SCH (21:42)
[2020-01-31] MEDS: Enoxaparin(*) 40 MG/0.4 ML SYR SUBCUT SCH (05:27)
[2020-01-31 06:16] LABS: ABS Basophils 0.1 10^3/ul (0-0.2); ABS Eosinophils 0.3 10^3/ul (0-0.6); ABS Lymphocytes 1.2 10^3/ul (1.0-4.8); ABS Monocytes 0.6 10^3/ul (0-0.8); ABS Neutrophils 4.2 10^3/ul (1.5-7.7); Hematocrit 23 % (35-47); Hemoglobin 7.7 g/dL (12.0-16.0); Lymphocyte % 18.6 %; Mean Corpuscular HGB Conc 34 g/dL (31-36); Mean Corpuscular Hemoglobin 31 pg (27-31); Mean Corpuscular Volume 92 fL (80-97); Mean Platelet Volume 6.8 fL (7.4-10.4); Nucleated Red Blood Cells % 0.1; Platelet Count 411 10^3/uL (150-450); Red Blood Count 2.51 10^6 /uL (3.70-4.87); Red Cell Distribution Width 14 % (10-15); White Blood Count 6.4 10^3/uL (3.5-10.8)
[2020-01-31 06:41] LABS: Calcium 8.6 mg/dL (8.6-10.3); EGFR Non-African American 30.6 (>60); Magnesium 1.8 mg/dL (1.9-2.7); Potassium 4.9 mmol/L (3.5-5.0)
[2020-01-31] MEDS ORDERED: Magnesium Sulfate 1 GM IV* 1 GM/100 ML BAG IV ONE (07:00)
[2020-01-31] MEDS ORDERED: Insulin GLARGINE(*) 1 UNITS UNIT SUBCUT SCH (07:30)
[2020-01-31] MEDS ORDERED: Thiamine TAB* 100 MG TAB PO SCH (09:00)
[2020-01-31 09:28] VITALS: BP 123/51
[2020-01-31] MEDS: Cholecalciferol TAB* 1000 UNITS PO SCH (09:41)
[2020-01-31] MEDS: Insulin LISPRO* 1 UNITS UNIT SUBCUT SCH (09:41)
[2020-01-31] MEDS: Aspirin EC TAB* 81 MG TAB.EC PO SCH (09:41)
[2020-01-31] MEDS: Carvedilol TAB* 6.25 MG PO SCH (09:42)
[2020-01-31] MEDS: Gabapentin CAP(*) 400 MG PO SCH (09:42)
[2020-01-31] MEDS: Pantoprazole TAB * 40 MG TAB PO SCH (09:42)
[2020-01-31] MEDS: Phenytoin CAP(*) 100 MG CAP.ER PO SCH (09:42)
[2020-01-31] MEDS: FLUoxetine CAP* 10 MG PO SCH (09:43)
[2020-01-31] MEDS: Furosemide IV* 10 MG/ML 10 ML VIAL (100 MG) IV SCH (09:43)
--- NOTE | 2020-01-31 09:49 | PN ---
Progress Note - Progress Note Date of Service: 01/31/20 SOAP: Subjective: []Feels OK but is extremely distressed by hospitalization and current ERIC requirements limiting visitors. As she is legally blind she has leaned heavily on her family for support and is unwilling to proceed with any additional therapy/work-up without them. Medications: Acetaminophen (Tylenol Tab*) 650 mg PO Q6H PRN PRN Reason: MILD PAIN or TEMP > 100.4 Last Admin: 01/28/20 23:17 Dose: 650 mg Albuterol (Ventolin 2.5 Mg/3 Ml Neb.Roxy*) 2.5 mg INH Q6H PRN PRN Reason: SOB/WHEEZING Aspirin (Aspirin Ec Tab*) 81 mg PO DAILY [facility] Last Admin: 01/31/20 09:41 Dose: 81 mg Atorvastatin Calcium (Lipitor*) 80 mg PO 2100 [facility] Last Admin: 01/30/20 21:42 Dose: 80 mg Carvedilol (Coreg Tab*) 12.5 mg PO BID [facility] Last Admin: 01/31/20 09:42 Dose: 12.5 mg Cholecalciferol (Vitamin D Tab*) 2,000 units PO DAILY [facility] Last Admin: 01/31/20 09:41 Dose: 2,000 units Dextrose (D50w Syringe 50 Ml*) 12.5 gm IV PUSH .FOR FS < 60 - SS PRN PRN Reason: FS < 60 Enoxaparin Sodium (Lovenox(*)) 40 mg SUBCUT 0600 [facility] Last Admin: 01/31/20 05:27 Dose: 40 mg Fluoxetine HCl (Prozac Cap*) 10 mg PO DAILY [facility] Last Admin: 01/31/20 09:43 Dose: 10 mg Furosemide (Lasix Iv*) 80 mg IV TID [facility] Last Admin: 01/31/20 09:43 Dose: 80 mg Gabapentin (Neurontin Cap(*)) 400 mg PO BID [facility] Last Admin: 01/31/20 09:42 Dose: 400 mg Insulin Glargine (Lantus(*)) 5 units SUBCUT Q24H [facility] Last Admin: 01/31/20 09:41 Dose: 5 units Insulin Human Lispro (Humalog*) 0 units SUBCUT ACHS [facility]; Protocol Last Admin: 01/31/20 09:41 Dose: 9 unit Ondansetron HCl (Zofran Inj*) 4 mg IV Q6H PRN PRN Reason: NAUSEA Last Admin: 01/27/20 17:15 Dose: 4 mg Pantoprazole Sodium (Protonix Tab*) 40 mg PO DAILY [facility] Last Admin: 01/31/20 09:42 Dose: 40 mg Patiromer (Veltassa Powder*) 8.4 gm PO DAILY [facility] Last Admin: 01/30/20 09:14 Dose: 8.4 gm Phenytoin Sodium (Dilantin Cap(*)) 200 mg PO BID [facility] Last Admin: 01/31/20 09:42 Dose: 200 mg Thiamine HCl (Vitamin B-1 Tab*) 100 mg PO DAILY [facility] Last Admin: 01/31/20 09:42 Dose: 100 mg Objective: [] Vital Signs Temp Pulse Resp BP Pulse Ox 98.8 F 78 16 123/51 98 01/31/20 08:30 01/31/20 08:30 01/31/20 09:42 01/31/20 08:30 01/31/20 08:30 A&O, involved in plan of care HRR, SR on tele Resp. even and non-labored Firm edema bilat. ankles, brown wraps in place Laboratory Results - last 24 hr 01/27/20 01/30/20 01/30/20 04:34 14:08 14:15 WBC RBC Hgb Hct MCV MCH MCHC RDW Plt Count MPV Neut % (Auto) Lymph % (Auto) Haakon % (Auto) Eos % (Auto) Baso % (Auto) Absolute Neuts (auto) Absolute Lymphs (auto) Absolute Monos (auto) Absolute Eos (auto) Absolute Basos (auto) Absolute Nucleated RBC Nucleated RBC % Sodium 124 L Potassium 5.1 H Chloride 90 L Carbon Dioxide 25 Anion Gap 9 BUN 49 H Creatinine 1.73 H Est GFR ( Amer) 36.0 Est GFR (Non-Af Amer) 29.7 BUN/Creatinine Ratio 28.3 H Glucose 291 H POC Glucose (mg/dL) 287 H Calcium 8.9 Magnesium Total Protein (PEP) 5.3 L Albumin (PEP) 2.3 L Albumin/Globulin (PEP) 0.79 Lqriz-2-Ftxiscian 0.2 Vysvd-6-Otanpqytv 1.0 Qfri-9-Hirpwjyp 0.8 Gamma Globulins 0.9 M-Jimmy Not Reportable M-Jimmy 2 Not Reportable PEP Impression See comment 01/30/20 01/30/20 01/31/20 17:05 21:25 06:01 WBC 6.4 RBC 2.51 L Hgb 7.7 L Hct 23 L MCV 92 MCH 31 MCHC 34 RDW 14 Plt Count 411 MPV 6.8 L Neut % (Auto) 65.2 Lymph % (Auto) 18.6 Haakon % (Auto) 10.2 Eos % (Auto) 5.0 Baso % (Auto) 1.0 Absolute Neuts (auto) 4.2 Absolute Lymphs (auto) 1.2 Absolute Monos (auto) 0.6 Absolute Eos (auto) 0.3 Absolute Basos (auto) 0.1 Absolute Nucleated RBC 0.0 Nucleated RBC % 0.1 Sodium Potassium Chloride Carbon Dioxide Anion Gap BUN Creatinine Est GFR ( Amer) Est GFR (Non-Af Amer) BUN/Creatinine Ratio Glucose POC Glucose (mg/dL) 246 H 240 H Calcium Magnesium Total Protein (PEP) Albumin (PEP) Albumin/Globulin (PEP) Aqnnc-6-Lonfvglao Bdrqn-0-Mksrkarua Jocr-0-Yosdiprt Gamma Globulins M-Jimmy M-Jimmy 2 PEP Impression 01/31/20 01/31/20 06:01 08:32 WBC RBC Hgb Hct MCV MCH MCHC RDW Plt Count MPV Neut % (Auto) Lymph % (Auto) Haakon % (Auto) Eos % (Auto) Baso % (Auto) Absolute Neuts (auto) Absolute Lymphs (auto) Absolute Monos (auto) Absolute Eos (auto) Absolute Basos (auto) Absolute Nucleated RBC Nucleated RBC % Sodium 126 L Potassium 4.9 Chloride 92 L Carbon Dioxide 24 Anion Gap 10 BUN 54 H Creatinine 1.69 H Est GFR ( Amer) 37.0 Est GFR (Non-Af Amer) 30.6 BUN/Creatinine Ratio 32.0 H Glucose 206 H POC Glucose (mg/dL) 266 H Calcium 8.6 Magnesium 1.8 L Total Protein (PEP) Albumin (PEP) Albumin/Globulin (PEP) Qvstl-7-Ajsevgnzr Sktyk-5-Rwfbfkzbw Nnpb-8-Eyjczsmj Gamma Globulins M-Jimmy M-Jimmy 2 PEP Impression Laboratory Tests 01/26/20 01/26/20 01/27/20 00:41 17:56 04:34 Retic Count, Calc Corrected Retic Count Haptoglobin TIBC 321 Erythropoietin Ferritin 20.8 Lactate Dehydrogenase 199 Total Protein (PEP) Albumin (PEP) Albumin/Globulin (PEP) Ofkpx-8-Tryvfxgzw Lmxnv-5-Zolkwwipo Zovv-0-Zeromwpg Gamma Globulins M-Jimmy M-Jimmy 2 Vitamin B12 452 Folate 10.49 TSH 1.16 Cold Agglutinin Titer 01/27/20 01/28/20 01/28/20 04:34 12:45 12:45 Retic Count, Calc 1.7 H Corrected Retic Count 0.9 Haptoglobin 203 H TIBC Erythropoietin 26.5 H Ferritin Lactate Dehydrogenase Total Protein (PEP) 5.3 L Albumin (PEP) 2.3 L Albumin/Globulin (PEP) 0.79 Fkjkq-3-Kdyvpcajv 0.2 Qmagv-4-Lmrauwxbv 1.0 Aowm-2-Dkgmmaqz 0.8 Gamma Globulins 0.9 M-Jimmy Not Reportable M-Jimmy 2 Not Reportable Vitamin B12 Folate TSH Cold Agglutinin Titer 01/28/20 12:46 Retic Count, Calc Corrected Retic Count Haptoglobin TIBC Erythropoietin Ferritin Lactate Dehydrogenase Total Protein (PEP) Albumin (PEP) Albumin/Globulin (PEP) Oukzt-2-Scjyrwznl Wdknw-9-Ldmjofmqc Lyfx-3-Jatbcdgx Gamma Globulins M-Jimmy M-Jimmy 2 Vitamin B12 Folate TSH Cold Agglutinin Titer <1:64 Assessment/Plan: []64 yo legally blind female with chronic renal insufficiency presenting with anasarca and hyponatremia found to have significant LV dysfunction and anemia. Hematology consulted for the later with work-up currently suggesting a refractory anemia/Myelodysplastic Syndrome. I reviewed that if this is MDS there is a small risk of transition to AML and there are treatment options. At this time we recommend a bone marrow biopsy to further evaluate her anemia as it is likely a production issue and I reviewed the procedure at length, including risks and benefits. She states understanding of this recommendation, however she is unwilling to proceed with additional work-up despite my suggestion that she have this procedure done before she leaves, so that on follow-up she has results (thereby limiting her exposure to healthcare facilities during the COVID-19 pandemic). She again, is not willing to do this today. Finally, we agree with proceeding with cardiology work-up as her cardiac function will be important in determining appropriate therapeutics. Case discussed at length with hospitalist NICHELLE Colon and cardiology team, KIRSTEN Correa and Dr. Garcia. Thank you for consulting our team, recommend outpatient bone marrow ~1 wk, our office will contact her []
--- NOTE | 2020-01-31 21:45 | DS ---
CC: Dr. Espinoza, [place]; Dr. Anthony Holland; Dr. Paulson; Dr. Matilde Gordillo * DISCHARGE SUMMARY: DATE OF ADMISSION: 01/25/20 DATE OF DISCHARGE: 01/31/20 PRIMARY CARE PROVIDER: Dr. Espinoza in [place]. MY ATTENDING WHILE IN THE HOSPITAL: Dr. May Ortega.* (DICTATED BY NICHELLE MORRIS) OUTPATIENT ONCOLOGIST: Dr. Anthony Holland. OUTPATIENT OUTSIDE BARREL LATHE OPERATOR: Dr. Paulson. OUTPATIENT WALLPAPER INSPECTOR AND SHIPPER: Dr. Matilde Gordillo. PRIMARY DISCHARGE DIAGNOSES: 1. Severe hyponatremia. 2. Acute on chronic heart failure with reduced ejection fraction. 3. Hyperkalemia. 4. Acute on chronic kidney disease. 5. Anemia, likely due to myelodysplastic syndrome. SECONDARY DISCHARGE DIAGNOSES: 1. Diabetes, likely type 1. 2. Coronary artery disease. 3. History of seizures. 4. Hypertension. 5. Diabetic retinopathy leading to blindness. 6. Diabetic neuropathy. STUDIES DONE WHILE IN THE HOSPITAL: Transthoracic echocardiogram from 01/27/20 read as cavity size upper limits of normal. Wall thickness mildly increased. Systolic function moderately reduced. EF 30% to 35%. Features consistent with pseudonormal left ventricular filling pattern, abnormal relaxation and increased filling pressure with grade 2 diastolic dysfunction. Right ventricle upper limits of normal. Systolic function mildly reduced. Mild regurgitation of the tricuspid valve. Venous Doppler study from 01/30/20 read as no deep vein thrombosis, nonocclusive thrombus in the superficial vein and antecubital fossa corresponding to the site of the IV. MEDICATIONS AT DISCHARGE: 1. Cholecalciferol 2000 units p.o. daily. 2. Phenytoin 200 mg p.o. daily. 3. Gabapentin 400 mg p.o. b.i.d. 4. Cyclobenzaprine 10 mg p.o. t.i.d. as needed. 5. Magnesium oxide 250 mg p.o. b.i.d. 6. Omeprazole 20 mg p.o. daily. 7. [place]-3 fatty acids 1000 mg p.o. b.i.d. 8. Insulin 70/30, 20 units subcutaneous daily. 9. Fluoxetine 10 mg p.o. daily. 10. Lipitor 80 mg p.o. daily. 11. Aspirin 81 mg p.o. daily. 12. Levocetirizine 5 mg p.o. daily. 13. Tylenol 650 mg p.o. q.6 hours as needed. 14. Carvedilol 12.5 mg p.o. b.i.d. 15. Sodium polystyrene suspension 15 g p.o. daily. 16. Thiamine 100 mg p.o. daily. 17. Torsemide 100 mg p.o. b.i.d. 18. Ferrous sulfate 325 mg p.o. daily. New medications at discharge: 1. Tylenol. 2. Carvedilol. 3. Kayexalate. 4. Thiamine. 5. Torsemide. 6. Ferrous sulfate. Medications discontinued at discharge: 1. Losartan 100 mg p.o. daily. 2. Meloxicam 7.5 mg p.o. daily. HOSPITAL COURSE: This is a brief summary of the patient's presentation. For more details, please see the history and physical from Mirta Dorsey NP, on 01/26/20. In brief, the patient is a 64-year-old female with past medical history significant for the above. Several weeks before her admission, she began to have weakness, shortness of breath with exertion, and lower extremity edema which was not responding to increasing doses of Lasix. The patient went to [facility] after a fall and was found to have a sodium of 118 and a slightly elevated troponin of 0.03 and was transferred to [facility]. The patient was started on Lasix, but her sodium went down to a low of 115. The patient was then transferred to the ICU and started on a Lasix drip with which she had significant diuresis and her sodium was able to be increased to 119. The patient was also started on metolazone, which was eventually stopped due to concern for worsening of her hyponatremia. The patient's potassium was high on admission and then increased again for unknown reasons. The patient's losartan was stopped for this. The patient's creatinine also started out on admission at 1.3 and as high as 1.87 with attempts at diuresis, but they were unsuccessful. The patient after being transferred out of the ICU was consulted on by Dr. Matilde Gordillo of Nephrology, who recommended 60 mg of IV Lasix 3 times a day. The patient responded very well to this and her sodium began to increase at a modest rate. The patient's blood pressure stayed normal. The patient's potassium stayed within normal limits with Lasix in conjunction with patiromer while inpatient. The patient had a transthoracic echocardiogram, which showed a newly decreased ejection fraction as well as the patient had a known fixed perfusion defect in her heart from a previous nuclear stress test, but the cause of the patient's heart failure was unknown. The patient was unable to undergo a cardiac catheterization while inpatient due to her kidney function, though this was recommended by Cardiology. The patient had an SPEP, which was normal. The patient was markedly anemic on admission at 8.7 with her hemoglobin dropping to a low of 7.7. The patient was seen in consultation by Dr. Anthony Holland of Hematology/Oncology, who believed the patient may be relative iron deficient and ordered IV iron; however, the patient was later deemed to have probable myelodysplastic syndrome and a bone marrow biopsy was recommended, but was deferred to outpatient by the patient. The patient notes some increase in her strength and decrease in her swelling and pain in her legs associated with edema. During her hospitalization due to visitor restrictions in place due to the COVID-19 epidemic, the patient was unable to see her family and on 01/31/20 insists on discharge from the hospital to home. After consultation with her consultants, a followup plan was devised for close followup with labs to be redrawn on 02/01/20, follow up with Dr. Holland , telemedicine visits with Dr. Gordillo, and to follow up with the patient's outpatient dental claims processor for ongoing ischemic evaluation. The patient was stable and amenable for discharge on 01/31/20 to home under the care of her daughter. PHYSICAL EXAM ON THE DAY OF DISCHARGE: General: The patient is a 64-year-old female, who appears stated age and sitting comfortably in the bed, in no acute distress. Vital Signs: At the time of evaluation, temperature 98.8, pulse rate 78, respiratory rate 16, oxygen saturation 98% on room air, blood pressure 123/51. HEENT: Head normocephalic, atraumatic. Sclerae anicteric. No conjunctival injection. Nasal mucosa moist. Oral mucosa moist. No pharyngeal erythema, discharge, or exudate. Neck: Supple, nontender. No lymphadenopathy. No carotid bruits auscultated. No JVD. Cardiac: Regular rate and rhythm. No clicks, murmurs, gallops, or rubs. Pulses are 2+ in the bilateral dorsalis pedis, posterior tibialis, and radial areas. 2+ bilateral lower extremity edema noted. Respiratory: Clear to auscultation bilaterally. No wheezes, rales, or rhonchi. Good air exchange bilaterally. Abdomen: Soft, nontender, nondistended. Bowel sounds present and normoactive in all 4 quadrants. No hepatosplenomegaly. No abdominal bruits auscultated. No hepatojugular reflux. Peau d'orange to the lower abdomen, likely related to anasarca. Genitourinary: No suprapubic or CVA tenderness. Skin: Clean, dry, and intact. Above rash on the abdomen. Several weeping areas in the lower extremities now have stopped weeping. Neuro: Flaccid left iris, blind. Peripheral neuropathy. Strength preserved throughout. Psychiatric: Pleasant and cooperative. DISCHARGE PLAN BY PROBLEM: 1. [id number] heart failure with reduced ejection fraction, EF 30% to 35% . The patient has heart failure with reduced ejection fraction, unknown etiology , EF 30% to 35% on most recent echocardiogram. The patient has a history of known IN with coronary artery disease. The patient did not undergo ischemic workup while inpatient. This should be followed up with her outpatient dental claims processor. The patient has refractory edema for unknown reason, but the patient was responding well to high-dose IV Lasix while in the hospital and the patient has been started on max dose torsemide with close followup for her sodium and potassium as an outpatient. The patient's creatinine appears to be elevated related to fluid overload and is improving with diuresis. The patient had normal SPEP, though other causes of nonischemic cardiomyopathy should be considered. There was some concern that the patient had undetected arrhythmia while in the hospital; however, this was deemed to be artifact after cardiologic consultation. The patient since started on carvedilol 12.5 mg b.i.d. The patient's losartan, however, has been stopped due to VIKA and hyperkalemia. 2. Hyponatremia. The patient's hyponatremia appears to be due to hypervolemia. The patient had a morning and non-morning cortisol checked while in the hospital and those were normal as was TSH. The patient had no other provoking stimuli for SIADH and is improving with diuresis. The patient should be continued on high-dose diuresis and managed by her bunghole borer. The patient will have a BMP rechecked on the day after her discharge. 3. Hyperkalemia. 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 The patient's losartan has been held at this time. The appropriateness of restarting this medication should be deferred to her outpatient dental claims processor based on ongoing laboratory data. The patient has been started on Kayexalate. The patient was planned to be started on patiromer, but her insurance did not cover this and it can be quite expensive and likely not be feasible for the patient. 4. Anemia. The patient has relatively severe anemia believed to be related to myelodysplastic syndrome at this time. The patient received 3 doses of IV iron while in the hospital and has been started on ferrous sulfate at discharge. The patient will follow up with Dr. Anthony Holland for consideration of bone marrow biopsy. 5. Coronary artery disease. Continue the patient's aspirin and statin. Follow up for outpatient ischemic evaluation. 6. Diabetes mellitus with diabetic neuropathy and diabetic retinopathy. Continue the patient's home insulin dosing. The patient should continue to follow up for outpatient monitoring through her primary care provider. The patient's most recent hemoglobin A1c was 8.7. DISPOSITION: Home. CONDITION: Stable. TIME SPENT: Approximately 75 minutes was spent on the discharge of this patient , 30 of which was spent [id number] with the patient obtaining history and physical and discussing treatment plan. NICHELLE MORRIS [id number]/[facility] #: [id number] AMY
== END 2020-01-31 11:55 | disposition home or self-care (01) | DRG 291 ==
LOC: ED 21:38 → MEDTELE 23:55 → ICU 01-26 06:52 → MEDTELE 01-27 13:22
PROVIDERS: ADMIT Nurse Practitioner; ATTEND Hospitalist
DX: I13.0 Hypertensive heart and chronic kidney disease with heart failure and stage 1 through stage 4 chronic kidney disease, or unspecified chronic kidney disease (principal); I50.23 Acute on chronic systolic (congestive) heart failure; E87.1 Hypo-osmolality and hyponatremia; N17.9 Acute kidney failure, unspecified; H54.8 Legal blindness, as defined in USA; I25.10 Atherosclerotic heart disease of native coronary artery without angina pectoris; F17.210 Nicotine dependence, cigarettes, uncomplicated; E78.5 Hyperlipidemia, unspecified; E66.9 Obesity, unspecified; E87.5 Hyperkalemia; G40.909 Epilepsy, unspecified, not intractable, without status epilepticus; N18.3 Chronic kidney disease, stage 3 (moderate); E10.319 Type 1 diabetes mellitus with unspecified diabetic retinopathy without macular edema; I25.5 Ischemic cardiomyopathy; K21.9 Gastro-esophageal reflux disease without esophagitis; D46.9 Myelodysplastic syndrome, unspecified; E10.22 Type 1 diabetes mellitus with diabetic chronic kidney disease; E10.40 Type 1 diabetes mellitus with diabetic neuropathy, unspecified; E87.70 Fluid overload, unspecified; Z88.0 Allergy status to penicillin; Z79.4 Long term (current) use of insulin; Z79.899 Other long term (current) drug therapy; Z68.31 Body mass index [BMI] 31.0-31.9, adult; I25.2 Old myocardial infarction
CPT/HCPCS: 36415; 36600; 80048; 80053; 80061; 80185; 81003; 81015; 82040; 82272; 82533; 82607; 82668; 82728; 82746; 82803; 83010; 83540; 83550; 83615; 83735; 83880; 83930; 83935; 84134; 84155; 84165; 84300; 84425; 84443; 84484; 85025; 85045; 85652; 86140; 86157; 87086; 93005; 93306; 99223; 99284; A9270-GY; C8929; J1650; J1940; J2405; J2916; J3411; J3475